=== PATIENT | female | born 1980 | race Caucasian/White ===

== ENCOUNTER 2019-08-03 12:47 | Emergency (ER) | payer OTHER ==
[~2019-08-03] VITALS: Ht 167 cm; Wt 87.2 kg
[2019-08-03 13:00] VITALS: BP 156/88
--- NOTE | 2019-08-03 13:40 | NUR ---
PT AND MOTHER MOVED TO FT 1 TO HAVE A MORE COMFORTABLE CHAIR.
[2019-08-03] MEDS ORDERED: HYDR25CA PO (14:25)
--- NOTE | 2019-08-03 14:26 | ED Psychosocial ---
General Chief Complaint: Psych/Social Disorder Stated Complaint: SEVERE ANXIETY X 3 DAYS Nursing Triage Note: ARRIVED VIA AMB TO TRIAGE. COMPLAINS OF SEVERE AXIETY FOR 3-4 DAYS NOT ALLOWING HER TO GET OUT OF BED. WAS SEEN BY [facility]. STOPPED THE BUSPAR ON SUNDAY BECAUSE IT WAS NOT HELPING HER. HAD BEEN ON XANAX BUT SHE WAS DEPENDENT ON IT AND STOPPED TAKING IT. History of Present Illness Date Seen by Provider: Aug 03, 2019 Time Seen by Provider: 13:15 Initial Comments 39-year-old female reports a history of depression and anxiety dating back to when she was 11 years old. She recently moved back to this area and her is , he is in [place] until February 2020. Patient was recently seen by [facility] and started on BuSpar, she took 3 doses and felt like it was causing her anxiety to be worse. She saw a mental health provider at that time and has follow up scheduled for 08/08/19. She did not follow-up with [facility], about stopping her Buspar. She does have a history of thyroid disorder however she stopped taking her thyroid medicine as it made her anxiety worse. She complains of agoraphobia and states that it often takes her several hours teething get out of bed to use the bathroom. Her mother is with her and answering many of the questions. Patient denies any thoughts of harming herself or others. Throughout the history and exam patient escalates to yelling about being miserable for the last 7 years and having no life, to crying and withdrawn . She has seen multiple providers and tried Paxil, Xanax (which she became addicted to), and Prozac. She denies any current medications. Timing/Duration: intermittent Associated Symptoms: anxiety Allergies and Home Medications Allergies Coded Allergies: amoxicillin (Verified Allergy, Severe, RASH, 08/03/19) Home Medications Hydroxyzine Pamoate 25 Mg Capsule, 25 MG PO Q8H PRN for ANXIETY Prescribed by: CARIN LIMA on 08/03/19 [id number] Patient Home Medication List Home Medication List Reviewed: Yes Review of Systems Constitutional: no symptoms reported, see HPI Psychiatric/Neurological: See HPI, Anxiety, Depressed, Emotional Problems, Other (agoraphobia) All Other Systems Reviewed Negative Unless Noted: Yes Past Qgjucvw-Ghovqo-Ukuazk Hx Past Med/Social Hx: Reviewed Nursing Past Med/Soc Hx Patient Social History Alcohol Use: Denies Use Recreational Drug Use: No Smoking Status: Never a Smoker Recent Foreign Travel: No Contact w/Someone Who Travel: No Recent Infectious Disease Expo: No Recent Hopitalizations: No Past Medical History Surgeries: Yes (TUMOR ON NECK REMOVED, BONE GRAFT ON JAW) Gallbladder Respiratory: No Cardiac: No Neurological: No Genitourinary: No Gastrointestinal: No Musculoskeletal: No Endocrine: Yes Hypothyroidsim HEENT: No Cancer: No Psychosocial: Yes Anxiety, Depression Physical Exam Vital Signs - First Documented 08/03/19 13:00 Temp 37.3 Pulse 112 Resp 16 B/P (MAP) 156/88 (110) Pulse Ox 99 O2 Delivery Room Air Capillary Refill : Less Than 3 Seconds Height, Weight, BMI Height: '" Weight: lbs. oz. kg; 31.00 BMI Method: General Appearance: WD/WN, mild distress HEENT: PERRL/EOMI, normal ENT inspection, TMs normal, pharynx normal Neck: full range of motion, normal inspection Respiratory: chest non-tender, lungs clear, normal breath sounds Cardiovascular: normal peripheral pulses, regular rate, rhythm Gastrointestinal: normal bowel sounds, non tender, soft Extremities: normal range of motion, non-tender, normal inspection Neurologic/Psychiatric: no motor/sensory deficits, alert, oriented x 3 Appearance/Memory: appropriate appearance, neat Behavior/Eye Contact: cooperative, normal speech, avoids eye contact Thoughts/Hallucinations: no apparent hallucination; No auditory hallucinations, No delusions, No flight of ideas, No grandiose, No incoherent, No obsessive; paranoid; No persecution; phobic; No voodoo, No tactile hallucinations, No visual hallucinations Skin: normal color, warm/dry Lymphatic: no adenopathy Progress/Results/Core Measures Results/Orders My Orders Orders - CARIN LIMA Hydroxyzine Cap/Tab (Vistaril) (08/03/19 14:30) Vital Signs/I&O 08/03/19 13:00 Temp 37.3 Pulse 112 Resp 16 B/P (MAP) 156/88 (110) Pulse Ox 99 O2 Delivery Room Air Blood Pressure Mean: 110 POS Progress Progress Note : Time: 13:15 Progress Note Patient seen and evaluated, significant counseling and options with local or regional mental health services discussed. Mother requesting to have her admitted, explained she had no acute medical issues and there are not mental health services at this facility. Offered to try Vistaril 25 mg and a RX to continue. Patient and her mother agreeable. 1400 While completing charting and RN obtaining medication, the patient left without discussion with this provider cardiology coordinator. No discharge papers were provided. No complaints or concerns voiced to admission staff. Departure Impression Primary Impression: Anxiety Additional Impression: Generalized social phobia Disposition: 07 AGAINST MEDICAL ADVICE Condition: Stable Departure-Patient Inst. Decision time for Depature: 14:[address]: [facility] NO,LOCAL PHYSICIAN (PCP) Primary Care Physician Patient Instructions: Anxiety, Adult (DC), Panic Disorder (DC) Add. Discharge Instructions: Schedule follow up with [facility] or [facility] walk in mental health in [place] or [facility] at [address] [place] [phone] Stay with family or friends. Take Vistaril 1 tablet every 8 hours for anxiety. Call [phone] if any feelings to harm self or others. Return to the emergency department for acute, medical concerns. All discharge instructions reviewed with patient and/or family. Voiced understanding. Scripts Hydroxyzine Pamoate (Vistaril) 25 Mg Capsule 25 MG PO Q8H PRN for ANXIETY, #12 CAP 0 Refills Prov: CARIN LIMA 08/03/19 CARIN LIMA Aug 03, 2019 14:26 POS
--- NOTE | 2019-08-03 14:27 | NUR ---
UPON TAKING PT HER MED AND DISCHARGE PAPERS I FOUND PT NOT TO BE IN HER ROOM. REGISTRAION STATES PT AND HER MOTHER LEFT. CARIN LIMA NOTIFIED.
[2019-08-03] MEDS ORDERED: hydrOXYzine (VISTARIL/ATARAX) 25 MG capsule/tablet PO ONE (14:30)
== END 2019-08-03 14:27 | disposition home or self-care (01) ==
LOC: ER 12:49 → MERGE 12:49 → ER 14:27
DX: F41.9 Anxiety disorder, unspecified (principal); F40.11 Social phobia, generalized; F32.9 Major depressive disorder, single episode, unspecified; E03.9 Hypothyroidism, unspecified; Z88.0 Allergy status to penicillin
CPT/HCPCS: 99283

== ENCOUNTER → 2020-02-04 | Outpatient (CLI) | payer OTHER ==
[~2020-02-04] MED LIST: HOLD METFORMIN - RECEIVED CONTRAST 20 ML VIAL IV SCH; HYDR25CA PO; IOHEXOL 350 MG/ML 100 ML (OMNIPAQUE 350) VIAL IV ONE; NS 100 ML (IVPB) BAG IV ONE
--- NOTE | 2020-02-04 09:29 | Diagnostic Imaging Report ---
PROCEDURE: CT abdomen and pelvis with contrast. TECHNIQUE: Multiple contiguous axial images were obtained through the abdomen and pelvis after administration of intravenous contrast. Auto Exposure Controls were utilized during the CT exam to meet ALARA standards for radiation dose reduction. INDICATION: Heavy menses and palpable knot just below the umbilicus. No prior studies are available for comparison. FINDINGS: The lung bases are clear. No discrete liver mass is detected. Gallbladder is surgically absent. No biliary ductal dilatation is seen. The pancreas and spleen are unremarkable. No adrenal mass is detected. Kidneys are unremarkable. There is no hydronephrosis. Aorta is non-aneurysmal. Bowel loops are normal caliber. No obstruction is seen. There is no free fluid identified. The uterus is markedly enlarged and appears to contain large masses, perhaps fibroids. In the low right paramidline portion of the pelvis adjacent to the rectum is a low-density mass measuring approximately 6 cm. It is uncertain if this represents a pedunculated uterine mass versus right adnexal ovarian mass. No definite abdominal or pelvic lymphadenopathy is seen. IMPRESSION: 1. Enlarged uterus containing multiple masses, likely fibroids. There is also a right para-midline low pelvic mass consistent with either a right adnexal mass versus a pedunculated myometrial mass. Correlation with ultrasound is recommended. No other significant abnormality is detected. Dictated by: Dictated on workstation # [id number]
== END ==
LOC: RAD 08:25
PROVIDERS: ATTEND Nurse Practitioner Family
DX: N85.2 Hypertrophy of uterus (principal)
CPT/HCPCS: 74177

== ENCOUNTER 2020-04-06 05:46 | Outpatient (RCR) | payer OTHER ==
[~2020-04-06] VITALS: Ht 167 cm; Wt 87.2 kg
[~2020-04-06 05:46] MED LIST changes: +CHOL20003 PO; +FERR-84 PO; -HOLD METFORMIN - RECEIVED CONTRAST 20 ML VIAL IV SCH; -IOHEXOL 350 MG/ML 100 ML (OMNIPAQUE 350) VIAL IV ONE; -NS 100 ML (IVPB) BAG IV ONE
== END 2020-04-06 13:36 | disposition home or self-care (01) ==
LOC: PREOP 05:46
PROVIDERS: ATTEND Obstetrics & Gynecology
DX: Z01.812 Encounter for preprocedural laboratory examination (principal); D25.9 Leiomyoma of uterus, unspecified; Z20.828 Contact with and (suspected) exposure to other viral communicable diseases
CPT/HCPCS: 87635

== ENCOUNTER 2020-04-09 06:42 | Inpatient (IN) | payer OTHER ==
[2020-04-09] VITALS (11 sets, daily range): BP systolic 103–128; BP diastolic 59–74
[~2020-04-09] VITALS: Ht 167 cm; Wt 87.2 kg
--- OUTSIDE RECORDS SUMMARY | 2020-04-09 06:48 | XMS REPORT | Continuity of Care Document ---
Author Organization Unknown Address Unknown Phone Unavailable Allergies Active Description Code Type Severity Reaction Onset Reported/Identified Relationship to Patient Clinical Status Yes AMOXICILLIN [id number] Drug Allergy Moderate Itching Yes amoxicillin [id number] Drug Aller gy Severe RASH 08/03/2019 Yes amoxicillin [id number] Drug Aller gy Severe RASH 04/02/2020 Medications There is no data. 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 Results Test Result Range CBC - 08/05/19 15:16 WHITE BLOOD CELL COUNT 8.6 Thousand/uL 3 .8-10.8 RED BLOOD CELL COUNT 4.91 Million/uL 3.8 0-5.10 HEMOGLOBIN 7.8 g/dL 11.7-15.5 HEMATOCRIT 29.7 % 35.0-45.0 MCV 60.5 fL 80.0-100.0 MCH 15.9 pg 27.0-33.0 MCHC 26.3 g/dL 32.0-36.0 RDW 18.9 % 11.0-15.0 PLATELET COUNT 348 Thousand/uL 140-400 MPV 9.6 fL 7.5-12.5 ABSOLUTE NEUTROPHILS 5452 cells/uL 1500- 7800 ABSOLUTE LYMPHOCYTES 2090 cells/uL 850-3 900 ABSOLUTE MONOCYTES 439 cells/uL 200-950 ABSOLUTE EOSINOPHILS 542 cells/uL 15-500 ABSOLUTE BASOPHILS 77 cells/uL 0-200 NEUTROPHILS 63.4 % NRG LYMPHOCYTES 24.3 % NRG MONOCYTES 5.1 % NRG EOSINOPHILS 6.3 % NRG BASOPHILS 0.9 % NRG URINE CORTISOL FREE (24 HOUR) - 08/07/19 17:20 TOTAL VOLUME 750 mL NRG CORTISOL, FREE, URINE 12.3 mcg/24 h 4.0- 50.0 CREATININE, URINE 1.19 g/24 h 0.50-2.15 ANEMIA PANEL - 08/13/19 16:14 IRON, TOTAL 20 mcg/dL 40-190 FERRITIN 3 ng/mL 16-154 IRON BINDING CAPACITY 440 mcg/dL (calc) 250-450 % SATURATION 5 % (calc) 16-45 STOOL (HEMOCCULT) - 08/17/19 00:00 FECAL GLOBIN BY IMMUNOCHEMISTRY SEE NOTE NRG CMP - 01/12/20 13:37 GLUCOSE 76 mg/dL 65-99 UREA NITROGEN (BUN) 10 mg/dL 7-25 CREATININE 0.78 mg/dL 0.50-1.10 eGFR NON-AFR. MALIAN 96 mL/min/1.73m2 > OR = 60 eGFR 111 mL/min/1.73m2 > OR = 60 BUN/CREATININE RATIO NOT APPLICABLE (calc) 6-22 SODIUM 139 mmol/L 135-146 POTASSIUM 3.9 mmol/L 3.5-5.3 CHLORIDE 103 mmol/L 98-110 CARBON DIOXIDE 27 mmol/L 20-32 CALCIUM 10.0 mg/dL 8.6-10.2 PROTEIN, TOTAL 7.2 g/dL 6.1-8.1 ALBUMIN 4.6 g/dL 3.6-5.1 GLOBULIN 2.6 g/dL (calc) 1.9-3.7 ALBUMIN/GLOBULIN RATIO 1.8 (calc) 1.0-2. 5 BILIRUBIN, TOTAL 0.5 mg/dL 0.2-1.2 ALKALINE PHOSPHATASE 53 U/L 31-125 AST 19 U/L 10-30 ALT 18 U/L 6-29 Encounters ACCT No. Visit Date/Time Discharge Status Pt. Type Provider Facility Loc./Unit Complaint [id number] 11/18/2015 06:41:00 11/18/2015 12:5 0:00 [facility] [place] [facility] [id number] 04/06/2020 05:46:00 13:36:00 DIS Outpatient JOSTIN HOFF DO [facility] PREOP UTERINE FIBROID [id number] 02/04/2020 08:25:00 23:59:59 CLS Outpatient MADIEBONNIE APRN [facility] RAD THICKENED ENDOMETRIUM [id number] 04/09/2020 08:15:00 P EN Preadmit JOSTIN HOFF DO U TERINE FIBROID [id number] 08/04/2019 08:54:00 Document Registration [id number] 03/03/2020 10:25:00 03/03/2020 23:59: 59 CLS Outpatient DUC [facility] [id number] 01/12/2020 13:30:00 Document Registration [id number] 08/13/2019 15:40:00 Document Registration [id number] 08/07/2019 16:40:00 Document Registration [id number] 08/05/2019 14:20:00 Document Registration [id number] 08/03/2019 12:49:00 14:27:00 DIS Emergency CARIN LIMA [facility] ER SEVERE ANXIETY X 3 DAYS
[2020-04-09] MEDS ORDERED: ceFAZolin INJECTION 1,000 MG in WATER (STERILE) FOR INJECTION 10 ML IV ONE (07:00)
[2020-04-09] MEDS ORDERED: NS IV 500 ML 500 ML IV SCH (07:00)
[2020-04-09] MEDS ORDERED: metroNIDAZOLE 500MG/100ML IVPB 100 ML IV ONE (07:00)
[2020-04-09] MEDS ORDERED: CATHETER FLUSH 10 ML SYR IV PRN (07:15)
[2020-04-09] MEDS ORDERED: MIDAZOLAM 2 MG/2 ML (VERSED) VIAL ONE (07:39)
[2020-04-09] MEDS ORDERED: fentaNYL INJECTION 250 MCG/5 ML AMP ONE (07:39)
--- NOTE | 2020-04-09 07:39 | Progress Note-Pre Operative ---
Pre-Operative Progress Note H&P Reviewed The H&P was reviewed, patient examined and no changes noted. Date Seen by Provider: Apr 09, 2020 Time Seen by Provider: 07:30 Date H&P Reviewed: Apr 09, 2020 Time H&P Reviewed: 07:25 Pre-Operative Diagnosis: uterine fibroids, ovarian cyst, menorrhagia, anemia JOSTIN HOFF DO Apr 09, 2020 07:39
[2020-04-09] MEDS: LACTATED RINGERS 1,000 ML IV PRN ×3 (07:41→11:42)
[2020-04-09] MEDS ORDERED: MIDAZOLAM 2 MG/2 ML (VERSED) VIAL IV ONE (07:45)
[2020-04-09] MEDS ORDERED: FAMOTIDINE 20MG/2ML IV (PEPCID) IV ONE (07:45)
[2020-04-09] MEDS ORDERED: ONDANSETRON 4 MG/2 ML (SDV) Z0FRAN IV ONE (07:45)
[2020-04-09] MEDS ORDERED: BUP/EPI 0.5% 1:200,000 (MARCAINE) 10ML VIAL IJ ONE (08:25)
[2020-04-09] MEDS ORDERED: HYDROmorphone 2 MG/ML VIAL (DILAUDID) ONE (09:04)
[2020-04-09] MEDS ORDERED: VASOPRESSIN INJECTION 20 UNIT/ML VIAL ONE (09:17)
[2020-04-09] MEDS ORDERED: SEVOFLURANE (ULTANE) 15 ML INHAL SOLN ONE ×9 (09:19→11:24)
[2020-04-09] MEDS ORDERED: proPOfol 200 MG/20 ML (DIPRIVAN) VIAL IV ONE (09:20)
[2020-04-09] MEDS ORDERED: GLYCOPYRROLATE 0.2 MG/ML (ROBINUL) 2 ML VIAL ONE (09:20)
[2020-04-09] MEDS ORDERED: NEOSTIGMINE 3 MG/3 ML VIAL ONE (09:20)
[2020-04-09] MEDS ORDERED: ONDANSETRON 4 MG/2 ML (SDV) Z0FRAN ONE (09:20)
[2020-04-09] MEDS ORDERED: ROCURONIUM 10 MG/ML 5 ML SYRINGE IV ONE (09:20)
[2020-04-09] MEDS ORDERED: LIDOCAINE PF 2% 5 ML (XYLOCAINE) VIAL ONE (09:20)
[2020-04-09] MEDS ORDERED: BUPIVACAINE 0.5% 30 ML (SENSORCAINE) VIAL ONE (09:21)
[2020-04-09 10:23] LABS: BASOPHILS % (AUTO) 0 % (0-10); EOSINOPHILS # (AUTO) 0.8 10^3/uL (0.0-0.3); EOSINOPHILS % (AUTO) 8 % (0-10); HEMATOCRIT 36 % (35-52); LYMPHOCYTES # (AUTO) 1.7 X 10^3 (1.0-4.0); LYMPHOCYTES % (AUTO) 15 % (12-44); MEAN CORPUSCULAR HEMOGLOBIN 27 PG (25-34); MEAN CORPUSCULAR HGB CONC 34 G/DL (32-36); MEAN CORPUSCULAR VOLUME 80 FL (80-99); MONOCYTES # (AUTO) 0.5 X 10^3 (0.0-1.0); MONOCYTES % (AUTO) 5 % (0-12); NEUTROPHILS # (AUTO) 7.7 X 10^3 (1.8-7.8); NEUTROPHILS % (AUTO) 72 % (42-75); PLATELET COUNT 309 10^3/uL (130-400); RED CELL DISTRIBUTION WIDTH 15.3 % (10.0-14.5); WHITE BLOOD COUNT 10.7 10^3/uL (4.3-11.0)
[2020-04-09 10:35] LABS: CHLORIDE 106 MMOL/L (98-107); POTASSIUM 5.5 MMOL/L (3.6-5.0); SODIUM 136 MMOL/L (135-145)
[2020-04-09 10:36] LABS: CALCIUM 8.1 MG/DL (8.5-10.1)
[2020-04-09 10:37] LABS: GLUCOSE 115 MG/DL (70-105)
[2020-04-09 10:38] LABS: CARBON DIOXIDE 24 MMOL/L (21-32)
[2020-04-09 10:40] LABS: CREATININE SERUM 0.75 MG/DL (0.60-1.30); GFR ESTIMATED > 60
[2020-04-09 10:41] LABS: BUN/CREATININE RATIO 12
[2020-04-09] MEDS: KETOROLAC 30 MG/ML VIAL IVP SCH ×3 (11:00→23:53)
--- NOTE | 2020-04-09 11:16 | Operative Report ---
Operative Report Date of Procedure/Surgery Apr 09, 2020 Surgeon (s) JOSTIN HOFF DO Bicycle Mechanic (s): NA Post-Operative Diagnosis Uterine fibroids Stage 4 endometriosis with bilateral endometriomas Obliterated culdesac Procedure Performed LILLIAM, Bilateral salpingectomy, Right oophorectomy. > 500 grams (850 grams) Lysis of adhesions multiple myomectomy Description of Procedure Anesthesia Type: General Estimated blood loss (mL): 300 Specimen(s) collected/removed uterus bilateral tubes, right ovary, fibroids Findings of the Procedure 850 gram uterus right endometrioma (6 cm) adherent to the posterior culdesac and uterosacral ligaments left ovary with adherence to the left uterosacral ligament, smaller endometrioma Peritubal adhesions bowel adhesions Allergies and Home Medications Allergies Coded Allergies: amoxicillin (Verified Allergy, Severe, RASH, 04/02/20) Home Medications Cholecalciferol (Vitamin D3) 50 Mcg Capsule, 50 MCG PO DAILY, (Reported) Ferrous Sulfate 325 Mg Tablet, 325 MG PO DAILY, (Reported) Patient Home Medication List Home Medication List Reviewed: Yes JOSTIN HOFF DO Apr 09, 2020 11:16
[2020-04-09] MEDS ORDERED: MILK OF MAGNESIA 400 MG/5 ML 30 ML UDC PO PRN (11:30)
[2020-04-09] MEDS ORDERED: ONDANSETRON 4 MG/2 ML (SDV) Z0FRAN IVP PRN ×2 (11:30→11:45)
[2020-04-09] MEDS ORDERED: HYDROmorphone 2 MG/ML VIAL (DILAUDID) IV ONE (11:45)
[2020-04-09] MEDS ORDERED: fentaNYL INJECTION 100 MCG/2 ML AMP IVP ONE (11:45)
[2020-04-09] MEDS ORDERED: D5 LR IV SOLUTION 1,000 ML IV ONE (12:10)
--- NOTE | 2020-04-09 12:30 | NUR ---
Pt arrives to women's services at this time. This RN received report form NAVIN Michaels at bedside. Pt allergic to amoxicillin. AB+ blood type. Pt had a Total Abdominal Hysterectomy with Bilateral Salpingectomy, Right Oophorectomy, and Myomectomy by Dr Melodie Bhardwaj. Xenia states that pt is on her 3rd bag of LR. IV in R FA. Abdominal binder is on. Dressing intact and dry. Vpad on with scant amount of bleeding. SCD on calves. Pt received TAP block after surgery. Surgery EBL was 200 ml. Starting HGB was 12. Pt has fole catheter in place which is patent and draining well. Pt tolerating ice chips well. Pt has a history of depression and panic disorder. Pt was unable to have children and has been sad/weepy. Pt has had a total of 150mcg of fentanyl, last dose was given at 1148. Pt has also had 0.5mg of Dilaudid which was given at 1215. First does of toradol was given by ORTHOPTIST at 1100. 's name is Uriel, he is still down stairs; Xenia RN will send him up to women's services. Pt moaning and appears uncomfortable, rating pain 7/10, lower abdominal intense cramping. This RN introduces self, discusses short term plan of care to get pain under control. Call light within reach. This RN in and out of pt room frequently.
[2020-04-09] MEDS ORDERED: morphine INJ 4 MG/ML 1 ML (VIAL/SYRINGE) ONE (12:43)
[2020-04-09] MEDS: morphine INJ 10 MG/ML 1ML (SYR OR VIAL) IVP PRN ×3 (12:49→17:26)
[2020-04-09] MEDS ORDERED: morphine INJ 10 MG/ML 1ML (SYR OR VIAL) ONE (12:51)
[2020-04-09] MEDS: D5 LR IV SOLUTION 1,000 ML IV SCH ×2 (12:55→20:06)
--- NOTE | 2020-04-09 13:38 | NUR ---
1250 VSS, however, pt rates pain 8/10 in lower abdominal area, intense cramping. Morphine admin and pt states she has not received relief. 1330: Heating pad (T-pad) applied to abdomen at this time 1338: pt now rating pain 4/10, states the heating pad has helped tremendously. Pt declines pain med and zofran at this time, stating that feels it has relieved her pain enough that she can get some rest. medication returned to [facility].
[2020-04-09] MEDS: ACETAMINOPHEN 500 MG TAB (TYLENOL) PO PRN (14:21)
[2020-04-09] MEDS: ceFAZolin INJECTION 1,000 MG VIAL IV SCH ×2 (15:50→23:54)
[2020-04-09] MEDS ORDERED: CHLORASEPTIC LOZENGE MM PRN (16:15)
--- NOTE | 2020-04-09 16:20 | NUR ---
report given to josh leigh at this time
--- NOTE | 2020-04-09 18:50 | NUR ---
RN call to patient room. Patient unable to reach water pitcher. No other questions or concerns voiced at this time.
[2020-04-09] MEDS ORDERED: DOCUSATE SODIUM 100 MG (COLACE) CAP PO SCH (21:00)
[2020-04-09] MEDS ORDERED: ceFAZolin INJECTION 1,000 MG ONE (23:45)
[2020-04-09] MEDS ORDERED: WATER (STERILE) FOR INJECTION 10 ML ONE (23:45)
[2020-04-10] VITALS: BP 108/67
[2020-04-10] MEDS: ACETAMINOPHEN 500 MG TAB (TYLENOL) PO PRN ×3 (00:52→20:00)
[2020-04-10] MEDS: D5 LR IV SOLUTION 1,000 ML IV SCH (04:23)
[2020-04-10 04:25] VITALS: BP 118/73
[2020-04-10 05:11] LABS: BASOPHILS % (AUTO) 0 % (0-10); EOSINOPHILS % (AUTO) 0 % (0-10); HEMATOCRIT 31 % (35-52); HEMOGLOBIN 10.3 G/DL (11.5-16.0); LYMPHOCYTES # (AUTO) 1.2 X 10^3 (1.0-4.0); LYMPHOCYTES % (AUTO) 11 % (12-44); MEAN CORPUSCULAR HEMOGLOBIN 27 PG (25-34); MEAN CORPUSCULAR HGB CONC 33 G/DL (32-36); MEAN CORPUSCULAR VOLUME 81 FL (80-99); MEAN PLATELET VOLUME 9.9 FL (7.4-10.4); MONOCYTES # (AUTO) 1.1 X 10^3 (0.0-1.0); MONOCYTES % (AUTO) 10 % (0-12); NEUTROPHILS # (AUTO) 8.4 X 10^3 (1.8-7.8); NEUTROPHILS % (AUTO) 78 % (42-75); PLATELET COUNT 321 10^3/uL (130-400); RED CELL DISTRIBUTION WIDTH 15.6 % (10.0-14.5); WHITE BLOOD COUNT 10.7 10^3/uL (4.3-11.0)
[2020-04-10] MEDS: KETOROLAC 30 MG/ML VIAL IVP SCH (06:31)
[2020-04-10] MEDS: DOCUSATE SODIUM 100 MG (COLACE) CAP PO SCH ×2 (07:33→19:33)
[2020-04-10] MEDS: ESTRADIOL 1 MG TAB (ESTRACE) PO SCH ×2 (07:34→07:36)
[2020-04-10 07:38] VITALS: BP 110/65
[2020-04-10] MEDS: SIMETHICONE 80 MG (MYLICON) CHEW PO PRN ×4 (07:52→19:33)
[2020-04-10] MEDS ORDERED: WATER (STERILE) FOR INJECTION 10 ML ONE (07:58)
[2020-04-10] MEDS: ceFAZolin INJECTION 1,000 MG VIAL IV SCH (08:07)
--- NOTE | 2020-04-10 08:45 | NUR ---
Up to BR - voided 200ml. Light vaginal bleeding. Tolerated activity well. Back to bed. Encouraged ambulation especially for gas discomfort. Abdominal binder and K-pad in place for comfort.
[2020-04-10] MEDS ORDERED: IBUPROFEN 600 MG (MOTRIN) TAB PO ONE (11:29)
[2020-04-10 11:40] VITALS: BP 110/72
[2020-04-10] MEDS: IBUPROFEN 600 MG (MOTRIN) TAB PO SCH ×2 (11:41→17:55)
[2020-04-10] MEDS ORDERED: IBUPROFEN 800 MG (MOTRIN) TAB PO SCH (12:00)
--- NOTE | 2020-04-10 12:24 | Progress Note ---
Standard Progress Note Progress Notes/Assess & Plan Date Seen by a Provider: Apr 10, 2020 Time Seen by a Provider: 12:30 Progress/Assessment & Plan Seen early am and had not yet ambulated or voided. good Urine output. now has voided and IVF heplocked Encouraged ambulation some nausea VS - Last 72 Hours, by Label 04/09/20 04/09/20 04/09/20 04/09/20 07:00 11:28 11:28 11:30 Temp 35.6 36.3 Pulse 84 Resp 16 16 B/P (MAP) 128/69 (88) 108/65 (79) Pulse Ox 98 100 O2 Delivery Room Air OxyMask OxyMask OxyMask O2 Flow Rate 6 6 6 04/09/20 04/09/20 04/09/20 04/09/20 11:40 11:45 11:50 12:00 Resp 20 20 B/P (MAP) 103/63 (76) 110/59 (76) Pulse Ox 100 100 O2 Delivery OxyMask OxyMask OxyMask OxyMask O2 Flow Rate 6 6 3 3 04/09/20 04/09/20 04/09/20 04/09/20 12:00 12:10 12:15 12:20 Resp 20 20 20 B/P (MAP) 110/64 (79) 113/71 (85) 110/63 (79) Pulse Ox 100 96 97 O2 Delivery OxyMask OxyMask Room Air Room Air O2 Flow Rate 3 3 04/09/20 04/09/20 04/09/20 04/09/20 12:30 12:30 12:30 12:50 Temp 36.3 36.5 Pulse 69 Resp 20 20 B/P (MAP) 111/62 (78) 104/65 (78) Pulse Ox 100 97 100 O2 Delivery Room Air Room Air Room Air Room Air 04/09/20 04/09/20 04/10/20 04/10/20 16:07 20:05 00:00 04:25 Temp 36.9 36.8 36.8 36.7 Pulse 89 97 72 80 Resp 16 16 16 16 B/P (MAP) 118/73 (88) 126/74 (91) 108/67 (81) 118/73 (88) Pulse Ox 97 97 99 98 O2 Delivery Room Air Room Air Room Air Room Air 04/10/20 07:38 Temp 36.9 Pulse 70 Resp 16 B/P (MAP) 110/65 (80) Pulse Ox 97 O2 Delivery Room Air Laboratory Tests Test 04/09/20 10:20 04/10/20 04:52 Range/Units White Blood Count 10.7 10.7 4.3-11.0 10^3/uL Red Blood Count 4.45 3.88 L 4.35-5.85 10^6/uL Hemoglobin 12.0 10.3 L 11.5-16.0 G/DL Hematocrit 36 31 L 35-52 % Mean Corpuscular Volume 80 81 80-99 FL Mean Corpuscular Hemoglobin 27 27 25-34 PG Mean Corpuscular Hemoglobin Concent 34 33 32-36 G/DL Red Cell Distribution Width 15.3 H 15.6 H 10.0-14.5 % Platelet Count 309 321 130-400 10^3/uL Mean Platelet Volume 10.0 9.9 7.4-10.4 FL Neutrophils (%) (Auto) 72 78 H 42-75 % Lymphocytes (%) (Auto) 15 11 L 12-44 % Monocytes (%) (Auto) 5 10 0-12 % Eosinophils (%) (Auto) 8 0 0-10 % Basophils (%) (Auto) 0 0 0-10 % Neutrophils # (Auto) 7.7 8.4 H 1.8-7.8 X 10^3 Lymphocytes # (Auto) 1.7 1.2 1.0-4.0 X 10^3 Monocytes # (Auto) 0.5 1.1 H 0.0-1.0 X 10^3 Eosinophils # (Auto) 0.8 H 0.0 0.0-0.3 10^3/uL Basophils # (Auto) 0.0 0.0 0.0-0.1 10^3/uL Sodium Level 136 135-145 MMOL/L Potassium Level 5.5 H 3.6-5.0 MMOL/L Chloride Level 106 98-107 MMOL/L Carbon Dioxide Level 24 21-32 MMOL/L Anion Gap 6 5-14 MMOL/L Blood Urea Nitrogen 9 7-18 MG/DL Creatinine 0.75 0.60-1.30 MG/DL Estimat Glomerular Filtration Rate > 60 BUN/Creatinine Ratio 12 Glucose Level 115 H 70-105 MG/DL Calcium Level 8.1 L 8.5-10.1 MG/DL Laboratory Tests Test 04/10/20 04:52 Range/Units White Blood Count 10.7 4.3-11.0 10^3/uL Red Blood Count 3.88 L 4.35-5.85 10^6/uL Hemoglobin 10.3 L 11.5-16.0 G/DL Hematocrit 31 L 35-52 % Mean Corpuscular Volume 81 80-99 FL Mean Corpuscular Hemoglobin 27 25-34 PG Mean Corpuscular Hemoglobin Concent 33 32-36 G/DL Red Cell Distribution Width 15.6 H 10.0-14.5 % Platelet Count 321 130-400 10^3/uL Mean Platelet Volume 9.9 7.4-10.4 FL Neutrophils (%) (Auto) 78 H 42-75 % Lymphocytes (%) (Auto) 11 L 12-44 % Monocytes (%) (Auto) 10 0-12 % Eosinophils (%) (Auto) 0 0-10 % Basophils (%) (Auto) 0 0-10 % Neutrophils # (Auto) 8.4 H 1.8-7.8 X 10^3 Lymphocytes # (Auto) 1.2 1.0-4.0 X 10^3 Monocytes # (Auto) 1.1 H 0.0-1.0 X 10^3 Eosinophils # (Auto) 0.0 0.0-0.3 10^3/uL Basophils # (Auto) 0.0 0.0-0.1 10^3/uL Intake and Output 04/10/20 00:00 Intake Total 3510 ml Output Total 540 ml Balance 2970 ml Intake Oral 400 ml IV Total 3110 ml Output Urine Total 540 ml 2 liter uo overnight. Lungs CTA Abdomen, mild distension Abdominal binder in place + bowel sounds Final Diagnosis 1. POD #1 s/p LILLIAM, bilateral salpingectomy, right oophorectomy, EVELYN, bilateral endometriomas, multiple uterine fibroids 2. Mild acute blood loss anemia Plan - routine postop encourage ambulation. diet Adv as tolerated JOSTIN HOFF DO Apr 10, 2020 12:24
--- NOTE | 2020-04-10 16:51 | NUR ---
Up to BR every 2-3 hours. More comfortable now since passing flatus.
[2020-04-10 17:50] VITALS: BP 116/54
[2020-04-10 19:30] VITALS: BP 115/55
--- NOTE | 2020-04-10 19:30 | NUR ---
INITIAL SHIFT ASSESSMENT COMPLETED. PT DENIES PASSING GAS BUT REPORTS GAS PAINS SEVERE. ENCOURAGED TO GET UP AND AMBULATE. PT REFUSES AMBULATION AT THIS TIME AND REQUESTS SIMETHICONE. COLACE ALSO ADMINISTERED.
--- NOTE | 2020-04-10 20:00 | NUR ---
PT REQUESTS OXYCODONE AT THIS TIME. PT STILL DESCRIBES PAIN "GAS PAIN" AND REPORTS THAT SIMETHICONE DID NOT TAKE ALL OF THE PAIN AWAY. PT ENCOURAGED TO GET UP AND WALK. PT CONT TO REPORT THAT SHE WALKED IN THE HALLS WITH HER TODAY AND DID NOT DUE WELL D/T THE PAIN. EDUCATED THAT THE LESS SHE DOES IT THE HARDER IT WILL BE AND THAT IF SHE GETS UP AND AMBULATES EVERY FEW HOURS IT WILL GET MUCH EASIER AND GAS PAIN WILL BE DECREASED. PT REFUSES TO AMBULATE AT THIS TIME DESPITE STRONG ENCOURAGEMENT.
--- NOTE | 2020-04-10 20:30 | NUR ---
PT UP TO BATHROOM AND REPORTS AMBULATED IN ROOM.
--- NOTE | 2020-04-10 21:30 | NUR ---
PT RESTING WELL. NO S/S OF DISTRESS OR DISCOMFORT NOTED.
--- NOTE | 2020-04-10 23:15 | NUR ---
PT RESTING QUIETLY. NO S/S OF DISTRESS OR DISCOMFORT NOTED.
[2020-04-11] MEDS: IBUPROFEN 600 MG (MOTRIN) TAB PO SCH ×2 (00:59→06:33)
[2020-04-11 01:00] VITALS: BP 110/58
--- NOTE | 2020-04-11 01:00 | NUR ---
REPEAT ASSESSMENT WITH MOTRIN AND SIMETHICONE ADMINISTERED.
[2020-04-11] MEDS: SIMETHICONE 80 MG (MYLICON) CHEW PO PRN ×2 (01:11→08:09)
--- NOTE | 2020-04-11 04:35 | NUR ---
LAB HERE FOR AM LABS.
[2020-04-11] MEDS: ACETAMINOPHEN 500 MG TAB (TYLENOL) PO PRN (04:43)
[2020-04-11 04:45] VITALS: BP 109/57
[2020-04-11 05:49] LABS: CHLORIDE 107 MMOL/L (98-107); POTASSIUM 3.4 MMOL/L (3.6-5.0); SODIUM 141 MMOL/L (135-145)
[2020-04-11 05:50] LABS: CALCIUM 7.9 MG/DL (8.5-10.1); GLUCOSE 87 MG/DL (70-105)
[2020-04-11 05:52] LABS: CARBON DIOXIDE 24 MMOL/L (21-32)
[2020-04-11 05:54] LABS: CREATININE SERUM 0.63 MG/DL (0.60-1.30); GFR ESTIMATED > 60
[2020-04-11 05:55] LABS: BUN/CREATININE RATIO 13
--- NOTE | 2020-04-11 05:55 | NUR ---
PT REQUESTS HELP WITH GETTING UP TO THE BATHROOM BECAUSE SHE IS SLEEPY. STANDBY ASSIST GIVEN. ENCOURAGED PT TO WALK IN PAYNE SINCE SHE IS UP AND OUT OF BED. PT AMB WITH STANDBY ASSIST TO WINDOW NORTH OF ROOM IN HALLWAY AND BACK. PT REPEATEDLY SAYS SHE DOESN'T LIKE THE WAY SHE FEELS AND THE PAIN WITH WALKING AND SHE JUST WANTS TO GET BACK IN BED. TALKED IN DEPTH ABOUT THE HEALTH PROBLEMS THAT CAN OCCUR WITH INACTIVITY AFTER SURGERY, INCLUDING BOWEL PROBLEMS, BLOOD CLOTS AND EVEN PNEUMONIA. PT VERBALIZES UNDERSTANDING.
--- NOTE | 2020-04-11 06:30 | NUR ---
PT USING CALL LIGHT. EPHRAIM OBTAINED AND THIS NURSE TO ROOM. PT VERY TEARFUL AND STATES SHE IS HAVING A PANIC ATTACK. TALKED WITH PT FOR 15 ABOUT FEELINGS. PT FEELS LIKE SHE IS NOT ACHIEVING ACTIVITY GOALS SHE SHOULD. PT ALSO VERY TEARFUL WITH THE DEFINITE END TO HER FERTILITY, REGARDLESS OF HER INABILITY TO GET IN THE PAST. PT ALSO DISCUSSES HER PREVIOUS ADDICTION TO XANAX AND DESIRE TO NOT START ANY MEDS FOR ANXIETY OR DEPRESSION. REASSURANCE AND ENCOURAGEMENT.
[2020-04-11 07:15] VITALS: BP 116/61
--- NOTE | 2020-04-11 07:15 | NUR ---
Pt calm. Feeling better. No c/o.
[2020-04-11] MEDS: DOCUSATE SODIUM 100 MG (COLACE) CAP PO SCH (08:10)
--- NOTE | 2020-04-11 08:20 | NUR ---
Pt up to BR voiding without difficulty.
--- NOTE | 2020-04-11 08:42 | NUR ---
Pt using K-pad to abdomen intermittently.
--- NOTE | 2020-04-11 09:00 | Progress Note ---
Standard Progress Note Progress Notes/Assess & Plan Date Seen by a Provider: Apr 11, 2020 Time Seen by a Provider: 08:30 Progress/Assessment & Plan Has ambulated and voided. + flatus. Pain controlled. Does continue to have some bowel/gas pain 04/11/20 04/11/20 04/11/20 04/11/20 01:00 04:45 07:15 07:15 Temp 36.6 36.6 36.8 Pulse 89 78 82 Resp 16 16 18 B/P (MAP) 110/58 (75) 109/57 (74) 116/61 (79) Pulse Ox 98 99 99 99 O2 Delivery Room Air Room Air Room Air Room Air 04/11/20 00:00 Intake Total 600 ml Output Total 1100 ml Balance -500 ml Laboratory Tests Test 04/11/20 04:49 Range/Units Sodium Level 141 135-145 MMOL/L Potassium Level 3.4 L 3.6-5.0 MMOL/L Chloride Level 107 98-107 MMOL/L Carbon Dioxide Level 24 21-32 MMOL/L Anion Gap 10 5-14 MMOL/L Blood Urea Nitrogen 8 7-18 MG/DL Creatinine 0.63 0.60-1.30 MG/DL Estimat Glomerular Filtration Rate > 60 BUN/Creatinine Ratio 13 Glucose Level 87 70-105 MG/DL Calcium Level 7.9 L 8.5-10.1 MG/DL Lungs - CTA Heart - RRR without murmur Abdomen - soft, + distension+ bowel sounds Inc - C/D/I reuben intact Diagnosis/Problems Diagnosis/Problems (1) Endometriosis, severe Status: Resolved Resolution Date/Time: 04/09/20 @ 09:04 (2) Endometrioma of ovary Status: Resolved Resolution Date/Time: 04/09/20 @ 09:04 (3) Uterine fibroid Status: Resolved Qualifiers: Qualified Codes: D25.1 - Intramural leiomyoma of uterus; D25.0 - Submucous leiomyoma of uterus Resolution Date/Time: 04/09/20 @ 09:04 (4) Menorrhagia Status: Resolved Qualifiers: Qualified Codes: N92.4 - Excessive bleeding in the premenopausal period Resolution Date/Time: 04/09/20 @ 09:04 (5) Dysmenorrhea Status: Resolved Resolution Date/Time: 04/09/20 @ 09:04 (6) Anemia Qualifiers: Qualified Codes: D50.0 - Iron deficiency anemia secondary to blood loss (chronic) JOSTIN HOFF DO Apr 11, 2020 09:00
[2020-04-11] MEDS ORDERED: IBUP-844 PO (09:02)
[2020-04-11] MEDS ORDERED: DCS100C PO (09:02)
[2020-04-11] MEDS ORDERED: SIME80TA16 PO (09:02)
[2020-04-11] MEDS ORDERED: ONDA4TAB11 PO (09:02)
[2020-04-11] MEDS ORDERED: BISA10SU58 RC (09:02)
[2020-04-11] MEDS ORDERED: BENZ1LOZ64 MM (09:02)
[2020-04-11] MEDS ORDERED: OXYC5TAB96 PO (09:02)
[2020-04-11] MEDS ORDERED: ACET-93 PO (09:02)
--- NOTE | 2020-04-11 09:09 | Discharge Inst-Women's Service ---
Discharge Inst-Women's Serv Depart Medication/Instructions New, Converted or Re-Newed RX: RX on Chart Final Diagnosis endometriosis, severe endometrioma uterine fibroids uterus 859 grams menorrhagia chronic iron def anemia Proc - LILLIAM, bilateral salpingectomy, Right oophorectomy, lysis of adhesions Problems Reviewed?: Yes Consults/Follow Up Additional Follow Up: Yes (1 week for staple removal; 6 week post op exam) Activity Activity: Activity as Tolerated (no lifting over 25 lbs) Driving Instructions: No Driving for 1 Week NO SMOKING: NO SMOKING Nothing Inside Vagina: No Douching, No [place], No Tampons Diet Discharge Diet: No Restrictions Symptoms to Report to : Swelling Increased, Bleeding Excessive, Pain Increased, Constipation(Persistant), Fever Over 101 Degrees F, Vaginal Bleeding Increase, Vaginal Discharge Foul For Any Problems or Questions: Contact Your Physician, Go to Emergency Room, Go to Quick Care Skin/Wound Care Infection Signs and Symptoms: Increased Redness, Foul Odor of Wound, Increased Drainage, Skin Itchy or Has a Rash, Increased Swelling, Temperature Above 101 F Operative Area Clean and Dry: Keep Incision Clean/Dry Stitches/[place]/Dermabond: Care of [place] Bathing Instructions: JOSTIN Velasquez DO Apr 11, 2020 09:09
--- NOTE | 2020-04-11 09:09 | NUR ---
Offered pt a shower. Pt declined wants to take one at home today.
[2020-04-11 09:50] VITALS: BP 116/61
--- NOTE | 2020-04-11 10:10 | NUR ---
ANÍBAL DORSEY demonstrates understanding of discharge instructions and accurately returns instructions upon questioning. Copy of Post-Discharge Instructions and Medication Discharge Instructions given to patient. ANÍBAL DORSEY is to manage continuing needs after discharge. Patients belongings returned to patient. Skin dry and intact; no breakdown noted. [facility]20 at 10:10. ANÍBAL DORSEY left floor via wheel chair, accompanied by and women's services staff. To personal vehicle. No s/s of distress.
--- NOTE | 2020-04-11 16:45 | Anesthesia-General Post-Op ---
General Patient Condition Mental Status/LOC: Same as Preop Cardiovascular: Satisfactory Nausea/Vomiting: Absent Respiratory: Satisfactory Pain: Controlled Complications: Absent Post Op Complications Complications None Follow Up Care/Instructions Patient Instructions None needed. Anesthesia/Patient Condition Patient Condition Patient is doing well, no complaints, stable vital signs, no apparent adverse anesthesia problems. No complications reported per nursing. D/[place] home [place] [facility] Criteria: Yes KERI HINKLE CRNA Apr 11, 2020 16:45
== END 2020-04-11 10:10 | disposition home or self-care (01) | DRG 742 ==
LOC: 4TH 06:42 → SURG 06:43 → WS 12:08
PROVIDERS: ADMIT Obstetrics & Gynecology; ATTEND Obstetrics & Gynecology
PROC: 0UTC0ZZ Resection of Cervix, Open Approach (ICD-10-PCS; 2020-04-09)
PROC: 0UT70ZZ Resection of Bilateral Fallopian Tubes, Open Approach (ICD-10-PCS; 2020-04-09)
PROC: 0UT00ZZ Resection of Right Ovary, Open Approach (ICD-10-PCS; 2020-04-09)
PROC: 0UT90ZZ Resection of Uterus, Open Approach (ICD-10-PCS; principal; 2020-04-09 08:44)
DX: D25.9 Leiomyoma of uterus, unspecified (principal); D62 Acute posthemorrhagic anemia; N92.0 Excessive and frequent menstruation with regular cycle; N83.201 Unspecified ovarian cyst, right side; N94.6 Dysmenorrhea, unspecified; N80.3 Endometriosis of pelvic peritoneum; N80.1 Endometriosis of ovary; N73.6 Female pelvic peritoneal adhesions (postinfective); F41.9 Anxiety disorder, unspecified; F32.9 Major depressive disorder, single episode, unspecified; Z87.891 Personal history of nicotine dependence
CPT/HCPCS: 36415; 80048; 84703; 85025; 86850; 86900; 86901; 86920; 87081; 88307

== ENCOUNTER 2021-06-28 07:53 | Inpatient (IN) | payer OTHER ==
[~2021-06-28] VITALS: Ht 167.7 cm; Wt 89.3 kg
[2021-06-28] VITALS (10 sets, daily range): BP systolic 103–126; BP diastolic 56–74
[~2021-06-28 07:53] MED LIST changes: +ACET-93 PO; +BENZ1LOZ64 MM; +BISA10SU58 RC; +DOCU-239 PO; +IBUP-844 PO; +ONDA4TAB11 PO; +OXC5T PO; +SIME80TA16 PO
--- OUTSIDE RECORDS SUMMARY | 2021-06-28 07:57 | XMS REPORT | Clinical Summary ---
Demographics Home Phone Preferred Language Scottish Marital Status Holiness Affiliation Unknown Race White Ethnic Group Not or Author Author [facility] Organization [facility] Address Unknown Phone Unavailable Care Team Providers Care Client Account Manager Name Role Phone PP Unavailable Allergies Not on File Medications Not on file Active Problems Not on file Social History Date Tobacco Use Types Packs/Day Years Used Never Assessed Sex Assigned at Date Recorded Not on file Plan of Treatment Not on file Results Not on filefrom Last 3 Months
--- NOTE | 2021-06-28 08:06 | ED Abdominal Pain ---
General Stated Complaint: RLQ PAIN,NAUSEA Source of Information: Patient Exam Limitations: No Limitations History of Present Illness Date Seen by Provider: Jun 28, 2021 Time Seen by Provider: 08:00 Initial Comments Patient is a 41-year-old who presents to the emergency department today with a chief complaint of right lower quadrant abdominal pain. Patient had onset of central abdominal discomfort/pain on Sunday of this last weekend. She states that slowly migrated down into the right lower quadrant. She states she is nauseous/anorexic. She tried to eat part of a cracker and have a sip of water at 330 this morning right around the time she took 2 ibuprofen. She did go to [facility] yesterday was diagnosed with presumptive bladder infection and placed on Bactrim. Patient states her pain is continued to worsen. She endorses fever up to 101. Previous cholecystectomy, previous hysterectomy with removal of her right ovary. Patient is Covid vaccinated. No other complaints of illness. Remains nauseated. All other review of systems reviewed and negative except as stated above. Timing/Duration: 2-3 Days Severity/Quality: Moderate, Aching Location: RLQ Radiation: Other (right thigh) Modifying Factors: Worsens With Movement Associated Symptoms: Fever/Chills, Nausea/Vomiting Allergies and Home Medications Allergies Coded Allergies: amoxicillin (Verified Allergy, Severe, RASH, 04/02/20) Patient Home Medication List Home Medication List Reviewed: Yes Acetaminophen (Acetaminophen) 500 Mg Tablet, 1,000 MG PO Q8H PRN for PAIN-MILD (1-4) Prescribed by: JOSTIN HOFF on 04/11/20901 Benzocaine/Menthol (Chloraseptic Sore Throat Lozng) 1 Each Lozenge, 1 MIRIAM MM Q4H PRN for Throat Irritation Prescribed by: JOSTIN HOFF on 04/11/20901 Bisacodyl (Dulcolax) 10 Mg Supp.rect, 10 MG RC BID Prescribed by: JOSTIN HOFF on 04/11/20901 Cholecalciferol (Vitamin D3) (Vitamin D3) 50 Mcg Capsule, 50 MCG PO DAILY, (Reported) Entered as Reported by: CHAYO DEE on 04/02/20 1222 Docusate Sodium (Dok) 100 Mg Capsule, 100 MG PO BID Prescribed by: JOSTIN HOFF on 04/11/20901 Ferrous Sulfate (Iron) 325 Mg Tablet, 325 MG PO DAILY, (Reported) Entered as Reported by: CHAYO DEE on 04/02/20 1222 Ibuprofen (Ibu) 600 Mg Tablet, 600 MG PO Q6H Prescribed by: JOSTIN HOFF on 04/11/20901 Ondansetron (Ondansetron Odt) 4 Mg Tab.rapdis, 4 MG PO TID Prescribed by: JOSTIN HOFF on 04/11/20901 Oxycodone Hcl (Oxyir Tablet) 5 Mg Tablet, 5-10 MG PO Q4H PRN for PAIN-SEVERE (8- 10) Prescribed by: JOSTIN HOFF on 04/11/20901 Simethicone (Simethicone) 80 Mg Tab.chew, 80 MG PO Q2HR PRN for gas Prescribed by: JOSTIN HOFF on 04/11/20901 Review of Systems Review of Systems Constitutional: see HPI EENTM: No Symptoms Reported Respiratory: No Symptoms Reported Cardiovascular: No Symptoms Reported Gastrointestinal: Abdominal Pain, Nausea, Vomiting Genitourinary: No Symptoms Reported Musculoskeletal: muscle pain (right thigh) Skin: no symptoms reported Psychiatric/Neurological: Anxiety All Other Systems Reviewed Negative Unless Noted: Yes Past Qouzkur-Xzqqtg-Tijpoz Hx Seasonal Allergies Seasonal Allergies: No Past Medical History Surgeries: Yes (TUMOR ON NECK REMOVED, BONE GRAFT ON JAW) Gallbladder Respiratory: No Currently Using CPAP: No Currently Using BIPAP: No Cardiac: No Neurological: No Female Reproductive Disorders: Menstrual Problems Sexually Transmitted Disease: No HIV/AIDS: No Genitourinary: No Gastrointestinal: Yes Gastroesophageal Reflux, Chronic Diarrhea Musculoskeletal: No Endocrine: No Hypothyroidsim HEENT: Yes (GLASSES) Loss of Vision: Denies Hearing Impairment: Denies Cancer: No Psychosocial: Yes (PANIC DISORDER, HX DEPRESSION) Anxiety, Depression Integumentary: No Blood Disorders: No (HX ANEMIA) Adverse Reaction/Blood Tranf: No (N/A) Physical Exam Vital Signs Vital Signs - First Documented 06/28/21 09:09 Temp 35.8 Pulse 114 Resp 16 B/P (MAP) 134/75 (94) Pulse Ox 99 O2 Delivery Room Air Capillary Refill : Height/Weight/BMI Height: '" Weight: lbs. oz. kg; 31.26 BMI Method: General Appearance: WD/WN, no apparent distress HEENT: PERRL/EOMI Respiratory: lungs clear, normal breath sounds, no respiratory distress, no accessory muscle use Cardiovascular: regular rate, rhythm Gastrointestinal: soft, abnormal bowel sounds (hypoactive), guarding, rebound (RLQ), tenderness, other (+ heel tap, positive Rovsing's) Extremities: normal range of motion, non-tender, normal inspection, no pedal edema, no calf tenderness Neurologic/Psychiatric: alert, normal mood/affect, oriented x 3 Skin: normal color, warm/dry Progress/Results/Core Measures Results/Orders Lab Results Laboratory Tests Test 06/28/21 08:00 06/28/21 08:15 Range/Units Urine Color ORANGE Urine Clarity CLOUDY Urine pH 6.0 5-9 Urine Specific [place] >=1.030 1.016-1.022 Urine Protein TRACE H NEGATIVE Urine Glucose (UA) TRACE H NEGATIVE Urine Ketones NEGATIVE NEGATIVE Urine Nitrite POSITIVE H NEGATIVE Urine Bilirubin 2+ H NEGATIVE Urine Urobilinogen >=8.0 < = 1.0 MG/DL Urine Leukocyte Esterase NEGATIVE NEGATIVE Urine RBC (Auto) TRACE-I H NEGATIVE Urine RBC 0-2 /HPF Urine WBC RARE /HPF Urine Squamous Epithelial Cells 10-25 H /HPF Urine Crystals PRESENT H /LPF Urine Amorphous Sediment RARE MARTINEZ URATES H /LPF Urine Bacteria FEW H /HPF Urine Casts NONE /LPF Urine Mucus LARGE H /LPF Urine Culture Indicated YES White Blood Count 18.8 H 4.3-11.0 10^3/uL Red Blood Count 5.45 H 3.80-5.11 10^6/uL Hemoglobin 14.0 11.5-16.0 g/dL Hematocrit 42 35-52 % Mean Corpuscular Volume 78 L 80-99 fL Mean Corpuscular Hemoglobin 26 25-34 pg Mean Corpuscular Hemoglobin Concent 33 32-36 g/dL Red Cell Distribution Width 14.9 H 10.0-14.5 % Platelet Count 301 130-400 10^3/uL Mean Platelet Volume 9.7 9.0-12.2 fL Immature Granulocyte % (Auto) 1 % Neutrophils (%) (Auto) 83 H 42-75 % Lymphocytes (%) (Auto) 8 L 12-44 % Monocytes (%) (Auto) 8 0-12 % Eosinophils (%) (Auto) 1 0-10 % Basophils (%) (Auto) 0 0-10 % Neutrophils # (Auto) 15.5 H 1.8-7.8 10^3/uL Lymphocytes # (Auto) 1.4 1.0-4.0 10^3/uL Monocytes # (Auto) 1.5 H 0.0-1.0 10^3/uL Eosinophils # (Auto) 0.1 0.0-0.3 10^3/uL Basophils # (Auto) 0.1 0.0-0.1 10^3/uL Immature Granulocyte # (Auto) 0.1 0.0-0.1 10^3/uL Neutrophils % (Manual) 85 % Lymphocytes % (Manual) 8 % Monocytes % (Manual) 4 % Eosinophils % (Manual) 0 % Basophils % (Manual) 0 % Band Neutrophils 3 % Toxic Granulation 1+ Anisocytosis SLIGHT Microcytosis SLIGHT Sodium Level 136 135-145 MMOL/L Potassium Level 3.8 3.6-5.0 MMOL/L Chloride Level 99 98-107 MMOL/L Carbon Dioxide Level 22 21-32 MMOL/L Anion Gap 15 H 5-14 MMOL/L Blood Urea Nitrogen 8 7-18 MG/DL Creatinine 0.78 0.60-1.30 MG/DL Estimat Glomerular Filtration Rate 81 BUN/Creatinine Ratio 10 Glucose Level 110 H 70-105 MG/DL Calcium Level 9.8 8.5-10.1 MG/DL My Orders Orders - TAM RIOS MD Ed Iv/Invasive Line Start (06/28/21 08:11) Cbc With Automated Diff (06/28/21 08:11) Basic Metabolic Panel (06/28/21 08:11) Ua Culture If Indicated (06/28/21 08:11) Ns Iv 1000 Ml (Sodium Chloride 0.9%) (06/28/21 08:15) Fentanyl Inj (Sublimaze Injection) (06/28/21 08:15) Ondansetron Injection (Zofran Injectio (06/28/21 08:15) Ct Abdomen/Pelvis Wo (06/28/21 08:16) Manual Differential (06/28/21 08:15) Urine Culture (06/28/21 08:00) Medications Given in ED Current Medications Medications Dose Ordered Sig/Adan Route Start Time Stop Time Status Last Admin Dose Admin Fentanyl Citrate 25 mcg ONCE ONCE IVP 06/28/21 08:15 06/28/21 08:16 DC 06/28/21 08:25 25 MCG Ondansetron HCl 4 mg ONCE ONCE IVP 06/28/21 08:15 06/28/21 08:16 DC 06/28/21 08:25 4 MG Vital Signs/I&O 06/28/21 09:09 Temp 35.8 Pulse 114 Resp 16 B/P (MAP) 134/75 (94) Pulse Ox 99 O2 Delivery Room Air Progress Progress Note : Time: 09:03 Progress Note Patient is feeling a little bit better with pain medications on board. She has about 200 cc of normal saline fluid bolus left. CT shows findings consistent with acute appendicitis and probable perforation with a significant amount of localized peritonitis. Urinalysis is also nitrite positive with large bacteria. I discussed findings with the patient and advised her I would be calling Dr. Vincent for admission. Diagnostic Imaging Diagonstic Imaging: CT Comments [facility] [place] NAME: ANÍBAL DORSEY [facility] REC#: [id number] PT STATUS: REG ER : 1980 PHYSICIAN: TAM RIOS MD ADMIT DATE: 06/28/21/ER Draft Date of Exam:06/28/21 CT ABDOMEN/PELVIS WO EXAMINATION: CT abdomen and pelvis without contrast. TECHNIQUE: Multiple contiguous axial images were obtained through the abdomen and pelvis without the use of intravenous contrast. All CT scans use one or more of the following dose optimizing techniques: automated exposure control, MA and/or KvP adjustment based on patient size and exam type or iterative reconstruction. HISTORY: Right lower quadrant pain. COMPARISON: 02/04/2020 FINDINGS: Limited views of the lower thorax are unremarkable. The liver is normal without focal lesion. There is no biliary ductal dilation. Gallbladder is surgically absent. Pancreas is normal. Spleen is normal. Adrenal glands are normal. The kidneys are normal. There is no hydronephrosis. Urinary bladder is normal. There has been a hysterectomy. There is a left ovarian cyst measuring 2.8 cm. There is an appendicolith in the proximal appendix with severe appendicitis and likely early perforation as there is a large amount of stranding and small amount of fluid in the pelvis and extending into the retroperitoneum. No cari intraperitoneal free air is seen. No drainable loculated fluid collection. No abdominal or pelvic lymphadenopathy. Aorta is normal in caliber without aneurysm. There are no suspicious osseous lesions. IMPRESSION: 1. Acute appendicitis with likely early perforation as there is severe surrounding stranding and a small amount of fluid in the pelvis and near the pancreatic tip. No loculated drainable collection or cari intraperitoneal free air. Dictated on workstation # [id number] Dict: 06/28/21 0842 Trans: 06/28/21 0853 [facility] [id number] Interpreted by: ANA LAURA BURKETT MD Electronically signed by: Departure Communication (Admissions) Time/Spoke to Admitting Phy: 09:[address] Vincent; will be down to see Impression Primary Impression: Acute appendicitis with perforation and localized peritonitis Qualified Codes: K35.32 - Acute appendicitis with perforation and localized peritonitis, without abscess Additional Impression: Urinary tract infection Qualified Codes: N30.00 - Acute cystitis without hematuria Disposition: ADMITTED INPATIENT Condition: Stable Admissions Decision to Admit Reason: Admit from ER (General) Decision to Admit/Date: Jun 28, 2021 Time/Decision to Admit Time: 09:00 Departure-Patient Inst. Referrals: [facility] (PCP) Primary Care Physician BONNIE RAMACHANDRAN APRN (Family) Primary Care Physician TAM RIOS MD Jun 28, 2021 08:06
[2021-06-28] MEDS ORDERED: fentaNYL INJ 100 MCG/2 ML AMP IVP ONE (08:15)
[2021-06-28] MEDS ORDERED: ONDANSETRON 4 MG/2 ML (SDV) Z0FRAN IVP ONE (08:15)
[2021-06-28] MEDS ORDERED: NS IV 1000 ML 1,000 ML IV SCH (08:15)
[2021-06-28 08:17] LABS: CLARITY,URINE CLOUDY; COLOR,URINE ORANGE; GLUCOSE, URINE (UA) TRACE (NEGATIVE); KETONES,URINE NEGATIVE (NEGATIVE); LEUKOCYTE ESTERASE ,URINE NEGATIVE (NEGATIVE); NITRITE,URINE POSITIVE (NEGATIVE); PROTEIN,URINE TRACE (NEGATIVE)
[2021-06-28 08:26] LABS: BASOPHILS # (AUTO) 0.1 10^3/uL (0.0-0.1); BASOPHILS % (AUTO) 0 % (0-10); EOSINOPHILS # (AUTO) 0.1 10^3/uL (0.0-0.3); EOSINOPHILS % (AUTO) 1 % (0-10); HEMATOCRIT 42 % (35-52); LYMPHOCYTES # (AUTO) 1.4 10^3/uL (1.0-4.0); LYMPHOCYTES % (AUTO) 8 % (12-44); MEAN CORPUSCULAR HEMOGLOBIN 26 pg (25-34); MEAN CORPUSCULAR HGB CONC 33 g/dL (32-36); MEAN CORPUSCULAR VOLUME 78 fL (80-99); MEAN PLATELET VOLUME 9.7 fL (9.0-12.2); MONOCYTES # (AUTO) 1.5 10^3/uL (0.0-1.0); MONOCYTES % (AUTO) 8 % (0-12); NEUTROPHILS # (AUTO) 15.5 10^3/uL (1.8-7.8); NEUTROPHILS % (AUTO) 83 % (42-75); PLATELET COUNT 301 10^3/uL (130-400); WHITE BLOOD COUNT 18.8 10^3/uL (4.3-11.0)
[2021-06-28 08:32] LABS: BACTERIA,URINE FEW /HPF; BILIRUBIN,URINE 2+ (NEGATIVE); RBC,URINE 0-2 /HPF; WBC,URINE RARE /HPF
[2021-06-28 08:33] LABS: AMORPHOUS SEDIMENT,UR RARE AMOR URATES /LPF
[2021-06-28 08:46] LABS: POTASSIUM 3.8 MMOL/L (3.6-5.0)
[2021-06-28 08:47] LABS: CALCIUM 9.8 MG/DL (8.5-10.1)
[2021-06-28 08:51] LABS: CREATININE SERUM 0.78 MG/DL (0.60-1.30)
--- NOTE | 2021-06-28 08:53 | Diagnostic Imaging Report ---
EXAMINATION: CT abdomen and pelvis without contrast. TECHNIQUE: Multiple contiguous axial images were obtained through the abdomen and pelvis without the use of intravenous contrast. All CT scans use one or more of the following dose optimizing techniques: automated exposure control, MA and/or KvP adjustment based on patient size and exam type or iterative reconstruction. HISTORY: Right lower quadrant pain. COMPARISON: 02/04/2020 FINDINGS: Limited views of the lower thorax are unremarkable. The liver is normal without focal lesion. There is no biliary ductal dilation. Gallbladder is surgically absent. Pancreas is normal. Spleen is normal. Adrenal glands are normal. The kidneys are normal. There is no hydronephrosis. Urinary bladder is normal. There has been a hysterectomy. There is a left ovarian cyst measuring 2.8 cm. There is an appendicolith in the proximal appendix with severe appendicitis and likely early perforation as there is a large amount of stranding and small amount of fluid in the pelvis and extending into the retroperitoneum. No cari intraperitoneal free air is seen. No drainable loculated fluid collection. No abdominal or pelvic lymphadenopathy. Aorta is normal in caliber without aneurysm. There are no suspicious osseous lesions. IMPRESSION: 1. Acute appendicitis with likely early perforation as there is severe surrounding stranding and a small amount of fluid in the pelvis and near the pancreatic tip. No loculated drainable collection or cari intraperitoneal free air. Dictated by: Dictated on workstation # [id number]
[2021-06-28 08:58] LABS: ANISOCYTOSIS SLIGHT; BAND NEUTROPHILS 3 %; BASOPHILS % (MANUAL) 0 %; EOSINOPHILS % (MANUAL) 0 %; LYMPHOCYTES % (MANUAL) 8 %; MICROCYTOSIS SLIGHT; MONOCYTES % (MANUAL) 4 %; NEUTROPHILS % (MANUAL) 85 %
[2021-06-28 08:59] LABS: TOXIC GRANULATION/VACUOLAZATIO 1+
[2021-06-28] MEDS ORDERED: CIPROFLOXACIN IV 400MG/200ML 200 ML IV ONE (09:45)
[2021-06-28] MEDS ORDERED: metroNIDAZOLE 500MG/100ML IVPB 100 ML IV ONE (09:45)
--- NOTE | 2021-06-28 10:06 | History & Physical-Surgical ---
JAYLAKULWINDERHARISH A MED STUDENT 06/28/21 1006: History of Present Illness History of Present Illness Reason for visit/HPI 41 yo female who presented to ED for RLQ pain and nausea since Sunday. Pt reports she started to feel ill on Sunday, then developed severe periumbilical pain on Sunday. Pt went to urgent care and was diagnosed with UTI and given bactrim. Denies any dysuria or frequency. She continued to have periumbilical pain that migrated to her RLQ and was refractory to GasX and laxatives. Pt reports her pain was so severe she induced vomiting in order to help relieve pre ssure. Pain radiates up into her back and down her leg. Pt states she has barely eaten in the last four days and last known meal was half of a cracker and water at 0330 this morning. Denies chest pain, SOA or vomiting currently. Pt reports she is very anxious currently. CT scan showed acute appendicitis with appendicolith and possible perforation. Date of Admission Jun 28, 2021 at 09:54 Date Seen by a Provider: Jun 28, 2021 Time Seen by a Provider: 09:45 I consulted on this patient on 06/28/21 09:59 Attending Physician Elizabeth Horton DO Admitting Physician [place] Consult Allergies and Home Medications Allergies Coded Allergies: amoxicillin (Verified Allergy, Severe, RASH, 04/02/20) Patient Home Medication List Acetaminophen (Acetaminophen) 500 Mg Tablet, 1,000 MG PO Q8H PRN for PAIN-MILD (1-4) Prescribed by: JOSTIN HOFF on 04/11/20901 Benzocaine/Menthol (Chloraseptic Sore Throat Lozng) 1 Each Lozenge, 1 MIRIAM MM Q4H PRN for Throat Irritation Prescribed by: JOSTIN HOFF on 04/11/20901 Bisacodyl (Dulcolax) 10 Mg Supp.rect, 10 MG RC BID Prescribed by: JOSTIN HOFF on 04/11/20901 Cholecalciferol (Vitamin D3) (Vitamin D3) 50 Mcg Capsule, 50 MCG PO DAILY, (Reported) Entered as Reported by: CHAYO DEE on 04/02/20 1222 Docusate Sodium (Dok) 100 Mg Capsule, 100 MG PO BID Prescribed by: JOSTIN HOFF on 04/11/20901 Ferrous Sulfate (Iron) 325 Mg Tablet, 325 MG PO DAILY, (Reported) Entered as Reported by: CHAYO DEE on 04/02/20 1222 Ibuprofen (Ibu) 600 Mg Tablet, 600 MG PO Q6H Prescribed by: JOSTIN HOFF on 04/11/20901 Ondansetron (Ondansetron Odt) 4 Mg Tab.rapdis, 4 MG PO TID Prescribed by: JOSTIN HOFF on 04/11/20901 Oxycodone Hcl (Oxyir Tablet) 5 Mg Tablet, 5-10 MG PO Q4H PRN for PAIN-SEVERE (8- 10) Prescribed by: JOSTIN HOFF on 04/11/20901 Simethicone (Simethicone) 80 Mg Tab.chew, 80 MG PO Q2HR PRN for gas Prescribed by: JOSTIN HOFF on 04/11/20901 Past Jeytkwk-Qxyhqq-Ptfylt Hx Patient Social History Tobacco Use?: No Tobacco type used: Cigarettes Smoking Status: Former Smoker Use of E-Cig and/or Vaping dev: No Substance use?: No Alcohol Use?: No Pt feels they are or have been: No Immunizations Up To Date First/Initial COVID19 Vaccinat: December 2020 Second COVID19 Vaccination Link: December 2020 Tetanus Booster (TDap): Unknown Seasonal Allergies Seasonal Allergies: No Current Status status: No status: No Communicates: Verbally Primary Language: Latvian Preferred Spoken Language: Latvian Is interpretation needed?: No Sensory deficits: Vision impairment Past Medical History 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 Currently Using CPAP: No Currently Using BIPAP: No Sexually Transmitted Disease: No HIV/AIDS: No Gastroesophageal Reflux, Chronic Diarrhea Hypothyroidsim Loss of Vision: Denies Hearing Impairment: Denies Anxiety, Depression Blood Disorders: No (HX ANEMIA) Adverse Reaction/Blood Tranf: No (N/A) Review of Systems Constitutional: fever, malaise EENTM: no symptoms reported Respiratory: No cough, No short of breath Cardiovascular: No chest pain, No palpitations Gastrointestinal: RLQ, abdominal pain; No constipation, No diarrhea; nausea, vomiting Genitourinary: No dysuria, No frequency Musculoskeletal: back pain; No muscle weakness Skin: No change in color, No change in hair/nails Psychiatric/Neurological: Anxiety, Depressed Physical Exam Vital Signs Vital Signs - First Documented 06/28/21 09:09 Temp 35.8 Pulse 114 Resp 16 B/P (MAP) 134/75 (94) Pulse Ox 99 O2 Delivery Room Air Capillary Refill : Less Than 3 Seconds Height, Weight, BMI Height: '" Weight: lbs. oz. kg; 31.00 BMI Method: General Appearance: Mild Distress, Obese HEENT: PERRL/EOMI, Normal ENT Inspection Neck: Normal Inspection, Non Tender Respiratory: Chest Non Tender, Lungs Clear, Normal Breath Sounds, No Accessory Muscle Use, No Respiratory Distress Cardiovascular: Regular Rate, Rhythm, No Gallop, No Murmur Gastrointestinal: Normal Bowel Sounds, Soft, Tenderness (RLQ and palpation in LLQ elicits pain in RLQ) Rectal: Deferred Back: Normal Inspection, No CVA Tenderness Extremity: Normal Capillary Refill, Normal Inspection, Non Tender, No Calf Tenderness, No Pedal Edema Neurologic/Psychiatric: Alert, Oriented x3, No Motor/Sensory Deficits Skin: Normal Color, Warm/Dry Lymphatic: No Adenopathy Data Review Labs Laboratory Tests 06/28/21 08:00: Urine Color ORANGE, Urine Clarity CLOUDY, Urine pH 6.0, Urine Specific [place] >=1.030, Urine Protein TRACEH, Urine Glucose (UA) TRACEH, Urine Ketones NEGATIVE, Urine Nitrite POSITIVEH, Urine Bilirubin 2+H, Urine Urobilinogen >=8.0, Urine Leukocyte Esterase NEGATIVE, Urine RBC (Auto) TRACE-IH, Urine RBC 0-2, Urine WBC RARE, Urine Squamous Epithelial Cells 10-25H, Urine Crystals PRESENTH, Urine Amorphous Sediment RARE MARTINEZ URATESH, Urine Bacteria FEWH, Urine Casts NONE, Urine Mucus LARGEH, Urine Culture Indicated YES 06/28/21 08:15: White Blood Count 18.8H, Red Blood Count 5.45H, Hemoglobin 14.0, Hematocrit 42, Mean Corpuscular Volume 78L, Mean Corpuscular Hemoglobin 26, Mean Corpuscular Hemoglobin Concent 33, Red Cell Distribution Width 14.9H, Platelet Count 301, Mean Platelet Volume 9.7, Immature Granulocyte % (Auto) 1, Neutrophils (%) (Auto) 83H, Lymphocytes (%) (Auto) 8L, Monocytes (%) (Auto) 8, Eosinophils (%) (Auto) 1, Basophils (%) (Auto) 0, Neutrophils # (Auto) 15.5H, Lymphocytes # (Auto) 1.4, Monocytes # (Auto) 1.5H, Eosinophils # (Auto) 0.1, Basophils # (Auto) 0.1, Immature Granulocyte # (Auto) 0.1, Neutrophils % (Manual) 85, Lymphocytes % (Manual) 8, Monocytes % (Manual) 4, Eosinophils % (Manual) 0, Basophils % (Manual) 0, Band Neutrophils 3, Toxic Granulation 1+, Anisocytosis SLIGHT, Microcytosis SLIGHT, Sodium Level 136, Potassium Level 3.8, Chloride Level 99, Carbon Dioxide Level 22, Anion Gap 15H, Blood Urea Nitrogen 8, Creatinine 0.78, Estimat Glomerular Filtration Rate 81, BUN/Creatinine Ratio 10, Glucose Level 110H, Calcium Level 9.8 Assessment/Plan Assessment/Plan Admission Diagonsis Acute appendicitis Reason for Inpatient Admission: Acute appendicitis Assessment/Plan Acute appendicitis with possible perforation and SIRS -WBC 18.8, Temp 35.8, Pulse 114 -CT showed dilated appendix with appendicolith and possible perforation -Ciprofloxacin and Flagyl started -Pt understands risks and benefits of procedure and would like to proceed UTI -Continue bactrim from home Anxiety Obesity Plan to do appendectomy with all other indicated procedures today, NPO for surgery, possible d/c home after procedure. ELIZABETH HORTON DO 06/28/21 1114: History of Present Illness History of Present Illness Reason for visit/HPI CC: RLQ ABD pain. Patient is a 41 year old female that has pain in bladder area starting on Sunday. Was started on abx for UTI. Continued to have bladder/periumbilical pain. Pain worsening over last few days. Having nausea and emesis. Pain radiates down leg and up left side of abdomen. Ct scan consistent with acute appendicitis with appendicolith. Allergies and Home Medications Allergies Coded Allergies: amoxicillin (Verified Allergy, Severe, RASH, 04/02/20) Patient Home Medication List Home Medication List Reviewed: Yes Acetaminophen (Acetaminophen) 500 Mg Tablet, 1,000 MG PO Q8H PRN for PAIN-MILD (1-4) Prescribed by: JOSTIN HOFF on 04/11/20 0902 Benzocaine/Menthol (Chloraseptic Sore Throat Lozng) 1 Each Lozenge, 1 MIRIAM MM Q4H PRN for Throat Irritation Prescribed by: JOSTIN HOFF on 04/11/20901 Bisacodyl (Dulcolax) 10 Mg Supp.rect, 10 MG RC BID Prescribed by: JOSTIN HOFF on 04/11/20901 Cholecalciferol (Vitamin D3) (Vitamin D3) 50 Mcg Capsule, 50 MCG PO DAILY, (Reported) Entered as Reported by: CHAYO DEE on 04/02/20 122 Docusate Sodium (Dok) 100 Mg Capsule, 100 MG PO BID Prescribed by: JOSTIN HOFF on 04/11/20901 Ferrous Sulfate (Iron) 325 Mg Tablet, 325 MG PO DAILY, (Reported) Entered as Reported by: CHAYO DEE on 04/02/201221 Ibuprofen (Ibu) 600 Mg Tablet, 600 MG PO Q6H Prescribed by: JOSTIN HOFF on 04/11/20901 Ondansetron (Ondansetron Odt) 4 Mg Tab.rapdis, 4 MG PO TID Prescribed by: JOSTIN HOFF on 04/11/20901 Oxycodone Hcl (Oxyir Tablet) 5 Mg Tablet, 5-10 MG PO Q4H PRN for PAIN-SEVERE (8- 10) Prescribed by: JOSTIN HOFF on 04/11/20901 Simethicone (Simethicone) 80 Mg Tab.chew, 80 MG PO Q2HR PRN for gas Prescribed by: JOSTIN HOFF on 04/11/20901 Past Ckpwdkc-Vpfjvj-Tsjhwl Hx Past Medical History 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, 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 Family Medical History Reviewed Nursing Family Hx No Pertinent Family Hx Review of Systems Constitutional: fever, malaise EENTM: no symptoms reported Respiratory: No cough, No short of breath Cardiovascular: No chest pain, No palpitations Gastrointestinal: RLQ, abdominal pain (RLQ); No constipation, No diarrhea; nausea, vomiting Genitourinary: No dysuria, No frequency Musculoskeletal: back pain; No muscle weakness Skin: No change in color, No change in hair/nails Psychiatric/Neurological: Anxiety, Depressed All Other Systems Reviewed Negative Unless Noted: Yes (Negative excepted noted.) Physical Exam General Appearance: Anxious, Mild Distress, Obese HEENT: PERRL/EOMI, Normal ENT Inspection Neck: Normal Inspection, Non Tender Respiratory: Chest Non Tender, No Accessory Muscle Use, No Respiratory Distress Cardiovascular: Regular Rate, Rhythm, No JVD Gastrointestinal: Soft, Tenderness (RLQ and palpation in LLQ elicits pain in RLQ) Rectal: Deferred Back: Normal Inspection, No CVA Tenderness Extremity: Normal Capillary Refill, Normal Inspection, Non Tender, No Calf Tenderness Neurologic/Psychiatric: Alert, Oriented x3, No Motor/Sensory Deficits Skin: Normal Color, Warm/Dry Lymphatic: No Adenopathy Assessment/Plan Assessment/Plan Admission Diagonsis acute appendicitis rlq abd pain nausea and vomiting Admission Status: Observation Assessment/Plan acute appendicitis rlq abd pain nausea and vomiting patient understands risks and benefits of laparoscopic appendectomy all other indicated procedures npo to or Supervisory-Addendum Brief Verification & Attestation Participated in pt care: history, MDM, physical Personally performed: exam, history, MDM, supervision of care Care discussed with: Medical Student Procedures: n/a Results interpretation: Verified all documentation Verification and Attestation of Medical Student E/M Service A medical student performed and documented this service in my presence. I reviewed and verified all information documented by the medical student and made modifications to such information, when appropriate. I personally performed the physical exam and medical decision making. Elizabeth Horton, Jun 28, 2021,11:18 HARISH MEJIA MED STUDENT Jun 28, 2021 10:06 ELIZABETH HORTON DO Jun 28, 2021 11:14
[2021-06-28] MEDS ORDERED: fentaNYL INJ 100 MCG/2 ML AMP ONE (10:34)
[2021-06-28] MEDS ORDERED: MIDAZOLAM 2 MG/2 ML (VERSED) VIAL ONE (10:34)
[2021-06-28] MEDS ORDERED: LIDOCAINE/EPI 1%-1:100,000 (XYLOCAINE) 20ML ONE (10:35)
[2021-06-28] MEDS ORDERED: FLU QUADRIvalent (3YOA+) 60 mcg/0.5 ml 2021-22(AFLURIA) IM ONE (11:00)
[2021-06-28] MEDS ORDERED: CATHETER FLUSH 10 ML SYR IV PRN (11:00)
[2021-06-28] MEDS: LACTATED RINGERS 1,000 ML IV PRN ×3 (11:02→13:35)
[2021-06-28] MEDS: NS IV 1000 ML 1,000 ML IV SCH ×2 (11:05→15:04)
[2021-06-28] MEDS ORDERED: ceFAZolin 2 GM IV Premixed 50 ML ONE (11:08)
[2021-06-28] MEDS ORDERED: ONDANSETRON 4 MG/2 ML (SDV) Z0FRAN ONE (11:35)
[2021-06-28] MEDS ORDERED: proPOfol 200 MG/20 ML (DIPRIVAN) VIAL IV ONE (11:35)
[2021-06-28] MEDS ORDERED: SEVOFLURANE (ULTANE) 15 ML INHAL SOLN ONE ×2 (11:35→12:34)
[2021-06-28] MEDS ORDERED: ROCURONIUM 10 MG/ML 5 ML SYRINGE IV ONE (11:35)
[2021-06-28] MEDS ORDERED: METOCLOPRAMIDE INJ 10 MG/2 ML (REGLAN) ONE (11:44)
[2021-06-28] MEDS ORDERED: RT-ALBUTEROL HFA 8.5 GM INHALER IH PRN (12:00)
[2021-06-28] MEDS ORDERED: HYDROmorphone 2 MG/ML VIAL (DILAUDID) ONE (12:01)
[2021-06-28] MEDS ORDERED: GLYCOPYRROLATE 0.2 MG/ML (ROBINUL) 2 ML VIAL ONE (13:00)
[2021-06-28] MEDS ORDERED: KETOROLAC 30 MG/ML VIAL ONE (13:04)
[2021-06-28] MEDS ORDERED: LACTATED RINGERS 1,000 ML IV ONE (13:25)
[2021-06-28] MEDS ORDERED: NEOSTIGMINE 3 MG/3 ML VIAL ONE (13:28)
[2021-06-28] MEDS ORDERED: ONDANSETRON 4 MG/2 ML (SDV) Z0FRAN IVP PRN ×3 (13:30→17:45)
[2021-06-28] MEDS ORDERED: HYDROmorphone 2 MG/ML VIAL (DILAUDID) IV ONE ×2 (13:30)
[2021-06-28] MEDS: CIPROFLOXACIN 400 MG/D5W 200 ML (PRE-MIX) IV SCH ×2 (14:55→20:50)
[2021-06-28] MEDS: metroNIDAZOLE 500 MG/100 ML IVPB (PRE-MIX) IV SCH ×2 (15:04→22:28)
[2021-06-28] MEDS ORDERED: FERR-84 PO (16:00)
[2021-06-28] MEDS ORDERED: IBUP-2473 PO (16:00)
[2021-06-28] MEDS ORDERED: VITA100C23 PO (16:00)
[2021-06-28] MEDS ORDERED: CHOL100048 PO (16:00)
[2021-06-28] MEDS ORDERED: SULF1TAB38 PO (16:00)
[2021-06-28] MEDS ORDERED: ASCO-262 PO (16:00)
[2021-06-28] MEDS ORDERED: MAGN400T39 PO (16:00)
[2021-06-28] MEDS ORDERED: MULT-1136 PO (16:00)
[2021-06-28] MEDS ORDERED: VITA-189 PO (16:00)
[2021-06-28] MEDS: morphine INJ 4 MG/ML 1 ML (VIAL/SYRINGE) IVP PRN (18:07)
[2021-06-28] MEDS: HYDROcodone/APAP 5 MG/325 MG (LORTAB) TAB PO PRN (21:02)
[2021-06-28] MEDS: CHLORASEPTIC SPRAY 177 ML LIQUID MC PRN (21:36)
[2021-06-28] MEDS: LACTATED RINGERS 1,000 ML IV SCH (22:28)
[2021-06-29 00:13] VITALS: BP 97/64
--- NOTE | 2021-06-29 02:16 | OPERATIVE REPORT ---
DATE OF SERVICE: 06/28/2021 PREOPERATIVE DIAGNOSES: Right lower quadrant abdominal pain, nausea, vomiting, acute appendicitis. POSTOPERATIVE DIAGNOSIS: Perforated appendicitis with abscess. PROCEDURE: Laparoscopic to open appendectomy with drainage of abscess with drainage of intraabdominal abscess and mobilization of the right colon. SURGEON: Elizabeth Horton DO TECHNICAL INSTRUCTOR: Dr. Domínguez, assisted in retraction, dissection and closure. ANESTHESIA: General. ESTIMATED BLOOD LOSS: Minimal. COMPLICATIONS: None. INDICATIONS: The patient is a 41-year-old female who has had 5 days of abdominal pain that has been more located to the right lower quadrant. The patient was initially diagnosed with urinary tract infection and was placed on Bactrim but continued to have worsening symptoms. Due to worsening symptoms, she went to the Emergency Department today to be evaluated. The patient has a white count of 18.8. She had a CT scan that was consistent with appendicitis with appendicolith and likely perforation. She understood risks and benefits of procedure and wished to proceed. Consent was signed in the chart. DESCRIPTION OF PROCEDURE: The patient was taken to the operating suite. She was prepped and draped in sterile fashion. Timeout was performed. Local anesthetic was infiltrated just above the umbilicus. A 11-blade scalpel was used to make a small skin incision. Cautery was used to dissect down to the fascia, which was then scored and elevated and the abdomen was then entered. A 12 mm gann trocar was inserted and pneumoperitoneum was achieved. Under direct visualization of the laparoscope, a 5 mm trocar was able to be placed in the suprapubic region. There were multiple adhesions within the abdomen at the midline, which were then bluntly and LigaSure was used to dissect down. A 5 mm trocar was placed in the left lower quadrant. The abdomen was then inspected. The small bowel was adherent down to the pelvis. There was some murky appearing fluid down into the pelvis as well. The colon had some adhesions to the right gutter and also this was followed down to where the base of the appendix was able to be visualized. It was dilated and the appendix looked inflamed. This was tucked down towards the lateral aspect of the body and then was extremely adherent and not mobile. There was question where the tip of the appendix was present and also where the middle portion of the appendix was retrocecal significantly. Blunt dissection and irrigation was used to try to mobilize the appendix. This was only partially successful. This was extremely adherent. Abscess cavity was then entered draining the cavity towards the distal portion of the appendix towards the tip of the appendix and this was then suctioned continuously. Once that was drained completely, attention was then brought back trying to mobilize the appendix, but due to its positioning and the adherence and other adhesions present, was able to successfully do laparoscopically; therefore decided to go through her midline incision. A 15-blade scalpel was used to make a skin incision down the midline until the abdomen was entered. The cecum was fixed in the right gutter and some of the right colon was mobilized along the white line of Toldt with both blunt and cautery dissection. Once this was mobilized, the cecum could be ruled out where the appendix was able to be brought out with some blunt dissection. At this point, we were able to dissect around the base of the appendix and using an Endo-ROLO 2.5 stapler the appendectomy was performed. This was then grasped and elevated. A LigaSure was then used to dissect through the mesoappendix. Lots of irrigation was used and suctioned. A Hesham-Markham drain 19 was placed in the right lower quadrant and brought out through the 5 mm incision on the left side of the abdomen and secured in the usual fashion. Again, the abdomen was irrigated and suctioned. Hemostasis had been achieved. The fascial defect was then closed using 1-0 looped PDS. The wound was then irrigated with copious amounts of irrigation. The skin was then closed using reuben. The patient tolerated procedure well without any complications. She was taken to recovery room in stable condition. CC: Josseline Llamas - requested, unable to deliver Job ID: [id number] DocumentID: [id number] Dictated Date: 06/28/2021 16:24:44 Gyroscopic Engineering Technician Date: 06/29/2021 02:15:36 Dictated By: ELIZABETH HORTON DO
[2021-06-29] MEDS: HYDROcodone/APAP 5 MG/325 MG (LORTAB) TAB PO PRN ×4 (04:09→19:33)
[2021-06-29 04:17] VITALS: BP 102/65
[2021-06-29] MEDS: metroNIDAZOLE 500 MG/100 ML IVPB (PRE-MIX) IV SCH ×3 (05:42→22:15)
[2021-06-29] MEDS: LACTATED RINGERS 1,000 ML IV SCH ×3 (05:50→19:36)
--- NOTE | 2021-06-29 07:38 | Progress Note - Surgery ---
HARISH MEJIA A MED STUDENT 06/29/21 0738: Subjective Date Seen by a Provider: Jun 29, 2021 Time Seen by a Provider: 07:15 Subjective/Events-last exam Pt up in bed this morning, states she is doing well. Pt reports her pain is improved from yesterday, she is just sore. Denies N/V, fever/chills, chest pain, SOA. Pt reports she feels much better after getting her marinelli catheter removed. She is tolerating clear liquid diet well and keeping jello down. Pt reports she is not passing gas, but feels like her bowels are moving. Review of Systems General: No Chills, No Fatigue HEENT: No Head Aches, No Visual Changes Pulmonary: No Dyspnea, No Cough Cardiovascular: No: Chest Pain, Palpitations Gastrointestinal: Abdominal Pain (Diffuse); No: Nausea, Vomiting, Diarrhea, Constipation Genitourinary: No Dysuria, No Frequency Musculoskeletal: No: back pain, leg pain Neurological: No: Weakness, Numbness Objective Exam Vital Signs Date Time Temp Pulse Resp B/P (MAP) Pulse Ox O2 Delivery O2 Flow Rate FiO2 06/29/21 04:17 36.6 84 18 102/65 (77) 96 Room Air 06/29/21 00:13 37.0 80 18 97/64 (75) 95 Room Air 06/28/21 20:50 Room Air 06/28/21 20:20 37.5 104 18 103/69 (80) 95 Room Air 06/28/21 15:35 37.5 106 20 114/65 (81) 94 Room Air 06/28/21 14:18 Room Air 06/28/21 14:10 16 113/68 (83) 96 Room Air 06/28/21 14:00 20 115/71 (86) 92 Room Air 06/28/21 14:00 Room Air 06/28/21 13:50 36.9 18 122/72 (89) 92 Room Air 06/28/21 13:45 OxyMask 2 06/28/21 13:40 14 111/63 (79) 98 OxyMask 2 06/28/21 13:30 14 121/74 (90) 98 OxyMask 4 06/28/21 13:30 OxyMask 4 06/28/21 13:18 OxyMask 4 06/28/21 13:18 38.2 12 113/56 (75) 98 OxyMask 4 06/28/21 11:32 36.8 105 100 06/28/21 10:15 36.8 105 22 126/72 (90) 100 Room Air 06/28/21 10:01 99 18 114/54 100 Room Air 06/28/21 09:09 35.8 114 16 134/75 (94) 99 Room Air 06/28/21 08:55 36.8 I & O 06/29/21 06:59 Intake Total 5250 ml Output Total 1665 ml Balance 3585 ml Capillary Refill : Less Than 3 Seconds General Appearance: No Apparent Distress, Obese HEENT: PERRL/EOMI, Normal ENT Inspection Neck: Normal Inspection, Non Tender Respiratory: Chest Non Tender, Lungs Clear, Normal Breath Sounds, No Accessory Muscle Use, No Respiratory Distress Cardiovascular: Regular Rate, Rhythm, No JVD Gastrointestinal: normal bowel sounds, soft, guarding, tenderness (diffuse), other Extremity: Normal Capillary Refill, Normal Inspection, Non Tender, No Calf Tenderness Neurologic/Psychiatric: Alert, Oriented x3, No Motor/Sensory Deficits, Normal Mood/Affect Skin: Normal Color, Warm/Dry, Other (Midline abdominal incision and left sided abdominal drain without erythema and edema, serosanguinous cloudy discharge from drain) Lymphatic: No Adenopathy Results Lab Laboratory Tests 06/28/21 08:00: Urine Color ORANGE, Urine Clarity CLOUDY, Urine pH 6.0, Urine Specific [place] >=1.030, Urine Protein TRACEH, Urine Glucose (UA) TRACEH, Urine Ketones NEGATIVE, Urine Nitrite POSITIVEH, Urine Bilirubin 2+H, Urine Urobilinogen >=8.0, Urine Leukocyte Esterase NEGATIVE, Urine RBC (Auto) TRACE-IH, Urine RBC 0-2, Urine WBC RARE, Urine Squamous Epithelial Cells 10-25H, Urine Crystals PRESENTH, Urine Amorphous Sediment RARE MARTINEZ URATESH, Urine Bacteria FEWH, Urine Casts NONE, Urine Mucus LARGEH, Urine Culture Indicated YES 06/28/21 08:15: White Blood Count 18.8H, Red Blood Count 5.45H, Hemoglobin 14.0, Hematocrit 42, Mean Corpuscular Volume 78L, Mean Corpuscular Hemoglobin 26, Mean Corpuscular Hemoglobin Concent 33, Red Cell Distribution Width 14.9H, Platelet Count 301, Mean Platelet Volume 9.7, Immature Granulocyte % (Auto) 1, Neutrophils (%) (Auto) 83H, Lymphocytes (%) (Auto) 8L, Monocytes (%) (Auto) 8, Eosinophils (%) (Auto) 1, Basophils (%) (Auto) 0, Neutrophils # (Auto) 15.5H, Lymphocytes # (Auto) 1.4, Monocytes # (Auto) 1.5H, Eosinophils # (Auto) 0.1, Basophils # (Auto) 0.1, Immature Granulocyte # (Auto) 0.1, Neutrophils % (Manual) 85, Lymphocytes % (Manual) 8, Monocytes % (Manual) 4, Eosinophils % (Manual) 0, Basophils % (Manual) 0, Band Neutrophils 3, Toxic Granulation 1+, Anisocytosis SLIGHT, Microcytosis SLIGHT, Sodium Level 136, Potassium Level 3.8, Chloride Level 99, Carbon Dioxide Level 22, Anion Gap 15H, Blood Urea Nitrogen 8, Creatinine 0.78, Estimat Glomerular Filtration Rate 81, BUN/Creatinine Ratio 10, Glucose Level 110H, Calcium Level 9.8 Assessment/Plan Assessment/Plan Admission Diagonsis Acute appendicitis Assessment/Plan Acute appendicitis with perforation and abscess -post op day 1 from lap to open appendectomy with L. abdominal drain placement -Draining >30mL of serosanguinous cloudy fluid according to nurse, will continue to monitor -Repeat labs today -Continue Cipro and Flagyl -Continue IV fluids RLQ pain -Improved N/V -Improved, tolerating clear liquid diet, continue that for today Will continue to monitor another day. ELIZABETH VINCENT DO 06/29/21 1326: Subjective Subjective/Events-last exam Feeling better than yesterday. Pain controlled. Drain serosang. Tolerating clears but no appetite. Denies n/v fever sweats chills shortness of breath or chest pain. Using IS. Objective Exam General Appearance: No Apparent Distress, Obese HEENT: PERRL/EOMI, Normal ENT Inspection Neck: Normal Inspection, Non Tender Respiratory: Chest Non Tender, No Accessory Muscle Use, No Respiratory Distress Cardiovascular: Regular Rate, Rhythm, No JVD Gastrointestinal: normal bowel sounds, soft; No guarding; tenderness (incisional incision c/d/i) Extremity: Normal Capillary Refill, Normal Inspection, Non Tender, No Calf Tenderness Neurologic/Psychiatric: Alert, Oriented x3 Skin: Normal Color, Warm/Dry Lymphatic: No Adenopathy Assessment/Plan Assessment/Plan Assessment/Plan Acute appendicitis with perforation and abscess -post op day 1 from lap to open appendectomy with drainage of intrabdomianl abscess and drain placement with mobilization or right colon -Draining >30mL of serosanguinous cloudy fluid according to nurse, will continue to monitor -Repeat labs today -Continue Cipro and Flagyl -Continue IV fluids RLQ pain -Improved N/V -Improved, tolerating clear liquid diet, continue that for today SCD's for dvt prophylaxis Start lovenox Supervisory-Addendum Brief Verification & Attestation Participated in pt care: history, MDM, physical Personally performed: exam, history, MDM, supervision of care Care discussed with: Medical Student Procedures: n/a Results interpretation: Verified all documentation Verification and Attestation of Medical Student E/M Service A medical student performed and documented this service in my presence. I reviewed and verified all information documented by the medical student and made modifications to such information, when appropriate. I personally performed the physical exam and medical decision making. Elizabeth Vincent, Jun 29, 2021,13:25 HARISH MEJIA MED STUDENT Jun 29, 2021 07:38 ELIZABETH VINCENT DO Jun 29, 2021 13:26
[2021-06-29 08:00] VITALS: BP_SYST 103; BP_SYST 144; BP_DIAS 55; BP_DIAS 67
[2021-06-29] MEDS: CIPROFLOXACIN 400 MG/D5W 200 ML (PRE-MIX) IV SCH ×2 (08:36→19:33)
[2021-06-29 12:00] VITALS: BP 105/59
[2021-06-29] MEDS: morphine INJ 4 MG/ML 1 ML (VIAL/SYRINGE) IVP PRN (12:53)
[2021-06-29] MEDS ORDERED: ENOXAPARIN 30 MG/0.3 ML (LOVENOX) SYR SC SCH (13:30)
[2021-06-29] MEDS: ENOXAPARIN 40 MG/0.4 ML (LOVENOX) SYR SC SCH (13:38)
--- NOTE | 2021-06-29 13:56 | Anesthesia-General Post-Op ---
General Patient Condition Mental Status/LOC: Same as Preop Cardiovascular: Satisfactory Nausea/Vomiting: Absent Respiratory: Satisfactory Pain: Controlled Complications: Absent Post Op Complications Complications None Follow Up Care/Instructions Patient Instructions None needed. Anesthesia/Patient Condition Patient Condition Patient is doing well, no complaints, stable vital signs, no apparent adverse anesthesia problems. No complications reported per nursing. YASMINE LANE CRNA Jun 29, 2021 13:56
[2021-06-29 16:31] VITALS: BP 107/62
[2021-06-29] MEDS: CHLORASEPTIC SPRAY 177 ML LIQUID MC PRN (19:34)
[2021-06-29 20:19] VITALS: BP 120/75
[2021-06-30 00:12] VITALS: BP 122/77
[2021-06-30] MEDS: HYDROcodone/APAP 5 MG/325 MG (LORTAB) TAB PO PRN ×2 (00:13→09:32)
[2021-06-30] MEDS: morphine INJ 4 MG/ML 1 ML (VIAL/SYRINGE) IVP PRN (04:16)
[2021-06-30 04:17] VITALS: BP 128/79
[2021-06-30] MEDS: metroNIDAZOLE 500 MG/100 ML IVPB (PRE-MIX) IV SCH (05:35)
[2021-06-30] MEDS: LACTATED RINGERS 1,000 ML IV SCH (05:37)
--- NOTE | 2021-06-30 07:56 | Progress Note - Surgery ---
HARISH MEJIA A MED STUDENT 06/30/21 0756: Subjective Date Seen by a Provider: Jun 30, 2021 Time Seen by a Provider: 07:25 Subjective/Events-last exam Pt up in chair this morning, visibly anxious and tearful. Pt reports she has a neck ache from lying bed and wishes to go home. Pts abdominal pain has improved since yesterday. Denies N/V/, fever/chills, chest pain, SOA. Pt reports she is passing gas, but has not had a bowel movement. She is tolerating clear liquid diet well. Pts midline abdominal incision was dressed with bandage, this was removed. Review of Systems General: No Chills, No Fatigue HEENT: Head Aches; No Visual Changes Pulmonary: No Dyspnea, No Cough Cardiovascular: No: Chest Pain, Palpitations Gastrointestinal: Abdominal Pain; No: Nausea, Vomiting Genitourinary: No Dysuria, No Frequency Musculoskeletal: neck pain; No: leg pain Neurological: No: Weakness, Numbness Objective Exam Vital Signs Date Time Temp Pulse Resp B/P (MAP) Pulse Ox O2 Delivery O2 Flow Rate FiO2 06/30/21 04:17 36.8 103 17 128/79 (95) 97 Room Air 06/30/21 02:17 94 Room Air 06/30/21 00:12 36.5 97 17 122/77 (92) 99 Room Air 06/29/21 20:19 36.8 98 18 120/75 (90) 98 Room Air 06/29/21 19:40 Room Air 06/29/21 16:31 37.0 100 18 107/62 (77) 97 Room Air 06/29/21 12:00 36.6 99 20 105/59 (74) 97 Room Air 06/29/21 08:00 Room Air 06/29/21 08:00 36.5 82 18 103/55 (71) 97 Room Air 06/29/21 07:57 95 Room Air I & O 06/30/21 07:00 Intake Total 3470 ml Output Total 3510 ml Balance -40 ml Capillary Refill : Less Than 3 Seconds General Appearance: Anxious, Obese HEENT: PERRL/EOMI, Normal ENT Inspection Neck: Normal Inspection, Non Tender Respiratory: Chest Non Tender, No Accessory Muscle Use, No Respiratory Distress Cardiovascular: Regular Rate, Rhythm, No JVD Gastrointestinal: normal bowel sounds, soft, tenderness (diffuse), other (LLQ drain with cloudy serosanguinous drainage) Extremity: Normal Capillary Refill, Normal Inspection, Non Tender, No Calf Tenderness Neurologic/Psychiatric: Alert, Oriented x3, Depressed Affect Skin: Normal Color, Warm/Dry, Other (nonpurulent midline abdominal incision without erythema or edema) Lymphatic: No Adenopathy Results Lab Microbiology 06/28/21 Urine Culture - Final, Complete Gram Pos Mixed Bacterial Wendy Assessment/Plan Assessment/Plan Admission Diagonsis Acute appendicitis Assessment/Plan Acute appendicitis with perforation and abscess -post op day 2 from lap to open appendectomy with drainage of intrabdominal abscess and drain placement with mobilization or right colon -Draining >30mL of serosanguinous cloudy fluid according to nurse, will continue to monitor -Continue Cipro and Flagyl -Continue IV fluids RLQ pain -Improved N/V -Improved, advance diet to regular SCD's for dvt prophylaxis Start lovenox ELIZABETH VINCENT DO 06/30/21 1412: Subjective Subjective/Events-last exam Tolerating diet. Having flatus. Feeling much better than before surgery. Denies n/v fever sweats chills shortness of breath or chest pain. Anxious and wanting to go home. Objective Exam General Appearance: Anxious, Obese HEENT: PERRL/EOMI, Normal ENT Inspection Neck: Normal Inspection, Non Tender Respiratory: Chest Non Tender, No Accessory Muscle Use, No Respiratory Distress Cardiovascular: Regular Rate, Rhythm, No JVD Gastrointestinal: normal bowel sounds, soft, tenderness (incisional tenderness, slight tenderness rlq), other (LLQ drain with cloudy serosanguinous drainage) Extremity: Normal Capillary Refill, Normal Inspection Neurologic/Psychiatric: Alert, Oriented x3, Depressed Affect Skin: Warm/Dry, Other (c/d/i) Lymphatic: No Adenopathy Assessment/Plan Assessment/Plan Assessment/Plan Acute appendicitis with perforation and abscess -post op day 2 from lap to open appendectomy with drainage of intrabdominal abscess and drain placement with mobilization or right colon -Draining >30mL of serosanguinous cloudy fluid according to nurse, will continue to monitor -Continue Cipro and Flagyl -Continue IV fluids RLQ pain -Improved N/V -Improved, advance diet as tolerates DC home Supervisory-Addendum Brief Verification & Attestation Participated in pt care: history, MDM, physical Personally performed: exam, history, MDM, supervision of care Care discussed with: Medical Student Procedures: n/a Results interpretation: Verified all documentation Verification and Attestation of Medical Student E/M Service A medical student performed and documented this service in my presence. I re viewed and verified all information documented by the medical student and made modifications to such information, when appropriate. I personally performed the physical exam and medical decision making. Elizabeth Vincent, Jun 30, 2021,14:12 HARISH MEJIA MED STUDENT Jun 30, 2021 07:56 ELIZABETH VINCENT DO Jun 30, 2021 14:12
[2021-06-30 08:17] VITALS: BP 120/69
[2021-06-30] MEDS: CIPROFLOXACIN 400 MG/D5W 200 ML (PRE-MIX) IV SCH (08:49)
[2021-06-30 11:54] VITALS: BP 130/64
[2021-06-30] MEDS: ENOXAPARIN 40 MG/0.4 ML (LOVENOX) SYR SC SCH (13:32)
[2021-06-30] MEDS ORDERED: METR500T PO (14:05)
[2021-06-30] MEDS ORDERED: CIPR-225 PO (14:05)
[2021-06-30] MEDS ORDERED: ACHD5005 PO (14:05)
--- NOTE | 2021-06-30 14:08 | Discharge Inst-Simple/Standard ---
Discharge Inst-Standard Discharge Medications New, Converted or Re-Newed RX: Transmitted to Pharmacy Patient Instructions/Follow Up Plan of Care/Instructions/FU: 2 weeks Melisa Activity as Tolerated: No Discharge Diet: Regular Diet Other Inst to Patient Follow up Appt: Make appointment for 2 week. Instructions: No lifting greater than 10 pounds. No strenuous activity. May shower in 24 hours, no tub bath or soaking. Use incentive spirometer at home as directed. No Smoking Skin/Wound Care: You have special glue over your incision that will fall off on it's own. When drain is less than 30 mL in 24 hours, call Dr. Vincent's office and notify them so they can pull the drain that day or next. Symptoms to Report: Appetite Changes, Extremity Discoloration, Numbness/Tingling, Swelling Increased , Bleeding Excessive, Eyesight Changes, Pain Increased, Urine Color Change, Constipation(Persistent), Fever over 101 degree F, Pain/Pressure in chest, Urinating Difficulty, Cough Up/Vomit Blood, Heart Beat Irreg/Pounding, Pain/Pressure in jaw, Vaginal Bleeding Increase, Cramps in feet or legs, Lightheadedness, Pain/Pressure in shoulder, Diarrhea(Persistent), Memory Changes Suddenly, Questions/Concerns, Weight gain consecutive days, Dizziness/Fainting, Nausea/Vomiting, Shortness of Breath, Weight gain over 2 pounds If questions or concerns contact your physician Or seek help at emergency department. ELIZABETH VINCENT DO Jun 30, 2021 14:08
== END 2021-06-30 14:30 | disposition home or self-care (01) | DRG 339 ==
LOC: EDUNIT# 07:53 → ER 07:54 → INTOOBSV 09:54 → OBSVTOIN 09:54 → UNDOADMOB 09:54 → 4TH 09:54 → UNDODISIN 06-30 14:30
PROVIDERS: ADMIT Surgery; ATTEND Surgery
PROC: 0WJG4ZZ Inspection of Peritoneal Cavity, Percutaneous Endoscopic Approach (ICD-10-PCS; 2021-06-28)
PROC: 0W9G0ZZ Drainage of Peritoneal Cavity, Open Approach (ICD-10-PCS; 2021-06-28)
PROC: 0DTJ0ZZ Resection of Appendix, Open Approach (ICD-10-PCS; principal; 2021-06-28 11:12)
DX: K35.33 Acute appendicitis with perforation, localized peritonitis, and gangrene, with abscess (principal); N39.0 Urinary tract infection, site not specified; R65.10 Systemic inflammatory response syndrome (SIRS) of non-infectious origin without acute organ dysfunction; K21.9 Gastro-esophageal reflux disease without esophagitis; E03.9 Hypothyroidism, unspecified; F41.9 Anxiety disorder, unspecified; F32.A Depression, unspecified; E66.9 Obesity, unspecified; Z68.31 Body mass index [BMI] 31.0-31.9, adult
CPT/HCPCS: 36415; 74176; 80048; 81000; 84703; 85007; 85027; 87088; 94664; 94760